=== PATIENT | male | born 1945 | race Caucasian/White ===

== ENCOUNTER 2019-09-23 07:27 | Emergency (ER) | payer OTHER ==
[2019-09-23 11:00] LABS: Urine Bacteria <20 /HPF (NONE SEEN); Urine Culture Reflex Order NOT NEEDED; Urine RBC <5 /HPF (NONE SEEN)
[2019-09-23 13:24] VITALS: BP 155/67; TEMP 97.9; O2SAT 97
--- NOTE | 2019-09-28 14:11 | EDPHYS ---
Physician Documentation [facility] Name: Ric Rivas Age: 73 yrs Sex: Male : 1945 Arrival Date: 09/23/2019 Time: 07:34 Bed 13 Private MD: ED Physician Ronak Collazo HPI: 09/22 08:02 This 73 yrs old Male presents to ER via Ambulatory with complaints of Urinary Problem. jmm 08:02 The patient presents with urinary symptoms, retention. Onset: The symptoms/episode jmm began/occurred this morning. Modifying factors: The symptoms are alleviated by nothing, the symptoms are aggravated by nothing. This is a 73 year old male with a history of enlarged prostate that presents to the ED with complaints of dysuria beginning yesterday and is now unable to urinate. Patient has had similar episodes in the past. Denies fever or vomiting. . Historical: - Allergies: 07:41 No Known Allergies; hb - Home Meds: 07:41 Bupropion Oral [Active]; hb - PMHx: 07:41 Urinary Retention; Enlarged Prostate; PTSD; hb - PSHx: 07:41 Carpal Tunnel Repair; hb - Immunization history:: Adult Immunizations up to date. - Social history:: Smoking status: Patient denies any tobacco usage or history of. ROS: 08:02 Constitutional: Negative for fever, chills, and weight loss, Cardiovascular: Negative jmm for chest pain, palpitations, and edema, Respiratory: Negative for shortness of breath, cough, wheezing, and pleuritic chest pain. 08:02 : Positive for urinary symptoms. 08:02 All other systems are negative. Exam: 08:02 Constitutional: This is a well developed, well nourished patient who is awake, alert, jmm and in no acute distress. Head/Face: atraumatic. Eyes: EOMI, no conjunctival erythema appreciated ENT: Moist Mucus Membranes Neck: Trachea midline, Supple Chest/axilla: Normal chest wall appearance and motion. Cardiovascular: Regular rate and rhythm. No edema appreciated Respiratory: Normal respirations, no respiratory distress appreciated Abdomen/GI: Non distended, soft Back: Normal ROM Skin: General appearance color normal MS/ Extremity: Moves all extremities, no obvious deformities appreciated, no edema noted to the lower extremities Neuro: Awake and alert, normal gait Psych: Behavior is normal, Mood is normal, Patient is cooperative and pleasant Vital Signs: 07:38 BP 155 / 67; Pulse 49; Resp 16; Temp 97.9; Pulse Ox 97% on R/A; Weight 99.79 kg; Height hb 5 ft. 11 in. (180.34 cm); Pain 8/10; 07:38 Body Mass Index 30.68 (99.79 kg, 180.34 cm) hb MDM: 07:54 Patient medically screened. [facility] 08:45 Data reviewed: vital signs, nurses notes. Counseling: I had a detailed discussion with [facility] the patient and/or guardian regarding: the historical points, exam findings, and any diagnostic results supporting the discharge/admit diagnosis, the need for outpatient follow up, to return to the emergency department if symptoms worsen or persist or if there are any questions or concerns that arise at home. ED course: approx 900 ml of urinary output. Patient's symptoms relieved. Patient is advised to follow up with urology and otherwise given strict return precautions. patient understood and agrees with the plan of care. . 09/22 07:54 Order name: Umanzor; Complete Time: 08:09 [facility] 09/22 07:54 Order name: Urine Dipstick-Ancillary (obtain specimen); Complete Time: 08:20 [facility] Administered Medications: No medications were administered Disposition: 09:25 Co-signature as Attending Physician, Ronak Collazo MD I agree with the assessment and kdr plan of care. Disposition: 09/23/19 08:46 Discharged to Home. Impression: Urinary Retention. - Condition is Stable. - Discharge Instructions: Acute Urinary Retention, Male. - Medication Reconciliation Form, Thank You Letter, Antibiotic Education, Prescription Opioid Use form. Signatures: Ronak Collazo MD MD [facility] Link Condon PA PA [facility] Sharon Foss, RN RN Gadiel Garcia RN RN jl7 Corrections: (The following items were deleted from the chart) 09:06 08:46 09/23/2019 08:46 Discharged to Home. Impression: Urinary Retention. Condition is jl7 Stable. Forms are Medication Reconciliation Form, Thank You Letter, Antibiotic Education, Prescription Opioid Use. Follow up: Private Physician; When: 2 - 3 days; Reason: Recheck today's complaints, Continuance of care, Re-evaluation by your physician. [facility]
--- NOTE | 2019-09-28 14:11 | ER ---
Nurse's Notes [facility] Name: Ric Rivas Age: 73 yrs Sex: Male : 1945 Arrival Date: 09/23/2019 Time: 07:34 Bed 13 Private MD: Diagnosis: Urinary Retention Presentation: 09/22 07:38 Chief complaint: Difficulty urinating last night, c/o suprapubic pain 8/10. Hx of hb urinary retention. Coronavirus screen: Proceed with normal triage. Ebola Screen: No symptoms or risks identified at this time. Initial Sepsis Screen: Does the patient meet any 2 criteria? No. Patient's initial sepsis screen is negative. Does the patient have a suspected source of infection? No. Patient's initial sepsis screen is negative. Risk Assessment: Do you want to hurt yourself or someone else? Patient reports no desire to harm self or others. Onset of symptoms was September 23, 2019. 07:38 Method Of Arrival: Ambulatory hb 07:38 Acuity: BOBBY 3 hb Historical: - Allergies: 07:41 No Known Allergies; hb - Home Meds: 07:41 Bupropion Oral [Active]; hb - PMHx: 07:41 Urinary Retention; Enlarged Prostate; PTSD; hb - PSHx: 07:41 Carpal Tunnel Repair; hb - Immunization history:: Adult Immunizations up to date. - Social history:: Smoking status: Patient denies any tobacco usage or history of. Screenin:09 Abuse screen: Denies threats or abuse. Denies injuries from another. Nutritional jl7 screening: No deficits noted. Tuberculosis screening: No symptoms or risk factors identified. Fall Risk None identified. Assessment: 08:00 General: Appears in no apparent distress. uncomfortable, Behavior is calm, cooperative, jl7 appropriate for age. Pain: Complains of pain in suprapubic area Pain currently is 8 out of 10 on a pain scale. Neuro: Level of Consciousness is awake, alert, obeys commands, Oriented to person, place, time, situation. Cardiovascular: Patient's skin is warm and dry. Respiratory: Airway is patent Respiratory effort is even, unlabored, Respiratory pattern is regular, symmetrical. : Reports inability to void. Derm: Skin is pink, warm \T\ dry. 09:00 Reassessment: Patient appears in no apparent distress at this time. Patient is alert, jl7 oriented x 3, equal unlabored respirations, skin warm/dry/pink. Patient states feeling better. Patient states symptoms have improved. Vital Signs: 07:38 BP 155 / 67; Pulse 49; Resp 16; Temp 97.9; Pulse Ox 97% on R/A; Weight 99.79 kg; Height hb 5 ft. 11 in. (180.34 cm); Pain 8/10; 07:38 Body Mass Index 30.68 (99.79 kg, 180.34 cm) hb ED Course: 07:34 Patient arrived in ED. mr 07:40 Triage completed. hb 07:41 Arm band placed on. 07:46 Gadiel Garcia, RN is Primary Nurse. 7 07:46 Link Condon PA is PHCP. [facility] 07:46 Ronak Collazo MD is Attending Physician. [facility] 08:09 Patient has correct armband on for positive identification. Bed in low position. Call jl7 light in reach. Side rails up X2. Warm blanket given. 08:09 Coud inserted, using sterile technique, 16 Fr. Returned clear yellow urine. To gravity jl7 drainage. Urine specimen collected. Patient tolerated well. 08:55 Coud removed intact, balloon deflated. jl7 09:00 No provider procedures requiring assistance completed. Patient did not have IV access jl7 during this emergency room visit. Administered Medications: No medications were administered Outcome: 08:46 Discharge ordered by . [facility] 09:00 Discharged to home ambulatory. jl7 09:00 Condition: stable 09:00 Discharge instructions given to patient, Instructed on discharge instructions, follow up and referral plans. Demonstrated understanding of instructions, follow-up care. 09:06 Patient left the ED. jl7 Signatures: Link Condon PA PA [facility] ZimmermanBelia FossSharon RN STACY Gadiel Garcia, STACY KUMAR jl7 Corrections: (The following items were deleted from the chart) 09:06 08:09 Coud inserted, using sterile technique, 16 Fr. Returned clear yellow urine. To jl7 gravity drainage. Urine specimen collected. jl7
== END 2019-09-23 09:06 | disposition home or self-care (01) ==
LOC: ER 07:27
DX: R33.9 Retention of urine, unspecified (principal); N40.0 Benign prostatic hyperplasia without lower urinary tract symptoms
CPT/HCPCS: 81015; 99284

== ENCOUNTER 2020-02-05 11:03 | Emergency (ER) | payer OTHER ==
--- OUTSIDE RECORDS SUMMARY | 2020-02-05 11:05 | XMS REPORT | Summary of Care ---
:1945 Author Organization [facility] - Health Address [address] [place] [address] Care Team Providers Name Role Phone [place], [facility] Quoc Christensen [facility] Primary Care Provider + Encounter Details Date Type Department Care Team Description 02/02/2020 Orders Only [facility] Doctor Unassigned, No [address] [facility] [place] [address] [address] [place] [address] Allergies No Known Allergiesdocumented as of this encounter (statuses as of 02/02/2020) Medications Medication Sig Dispensed Refills Start Date End Date Status tamsulosin 0.4 mg 24 Take 1 capsule by 30 capsule 1 12/24/2016 Active hr capsule mouth at bedtime. tamsulosin 0.4 mg 24 Take 1 capsule by 14 capsule 0 10/15/2017 Active hr capsule mouth at bedtime. cefdinir 300 mg Take 1 capsule by 7 capsule 0 03/11/2019 Active capsuleIndications: mouth every 24 Urinary tract (twenty-four) infection with hours. hematuria, site unspecified documented as of this encounter (statuses as of 02/02/2020) Active Problems No known active problemsdocumented as of this encounter (statuses as of 02/02/2020) Social History Tobacco Use Types Packs/Day Years Used Date Never Assessed Sex Assigned at Date Recorded Not on file documented as of this encounter Last Filed Vital Signs Not on filedocumented in this encounter Plan of Treatment Health Maintenance Due Date Last Done Comments Depression Screening 1957 DTaP,Tdap,and Td Vaccines (1 - Tdap) 10/19/1962 Zoster Recombinant Vaccine (SHINGRIX) (1 of 2) 10/19/1993 Medicare Wellness Visit 10/19/2008 PNEUMOCOCCAL VACCINES 65+ (1 of 1 - PPSV23) 10/19/2008 INFLUENZA VACCINE (#1) 2019 documented as of this encounter Procedures Procedure Name Priority Date/Time Associated Diagnosis Comme nts CONSENT/REFUSAL FOR Routine 02/02/2020 6:29 AM CDT DIAGNOSIS AND TREATMENT documented in this encounter Results Not on filedocumented in this encounter Insurance Payer Benefit Plan / Subscriber ID Effective Phone Address T ype Group Dates MEDICARE MEDICARE PART A [id number] 2008-Pre [phone] Medicare sent [phone] [id number] [place] [phone] [employer] [id number] 2005-Pr HMO/PPO /PO ADMINISTRATION ADMINISTRATION esent S [facility] [id number] 2005-Pr HMO/PPO /PO ADMINISTRATION esent S documented as of this encounter
--- OUTSIDE RECORDS SUMMARY | 2020-02-05 11:05 | XMS REPORT | Summary of Care ---
:1945 Author Organization [facility] Address [address] [place] [address] Care Team Providers Name Role Phone [place], [facility] Provider + Reason for Visit Reason Comments Constipation URINARY RETENTION Auth/Cert Status Reason Specialty Diagnoses / Referred By Referred To Procedures Contact Contact Emergency Medicine Diagnoses CONSTIPATION [facility] [address] [place] [address] Fax: Encounter Details Date Type Department Care Team Description 02/02/2020 Emergency [facility]-Emergency Chun Perry DO Urinary retention Department [address] [place] [address]. (Primary Dx) [address] [facility] [address] [place] [address] [place] [address] [phone] Allergies No Known Allergiesdocumented as of this [...] Assigned at Date Recorded Not on file COVID-19 Exposure Response Date Recorded In the last month, have you been in contact with No / Unsure 02/02/2020 6:42 AM CDT someone who was confirmed or suspected to have Coronavirus / COVID-19? documented as of this encounter Last Filed Vital Signs Vital Sign Reading Time Taken Comments Blood Pressure 139/66 02/02/2020 8:00 AM CDT Pulse 81 02/02/2020 8:00 AM CDT Temperature 36.7 C (98 F) 02/02/2020 8:00 AM CDT Respiratory Rate 18 02/02/2020 8:00 AM CDT Oxygen Saturation 99% 02/02/2020 8:00 AM CDT Inhaled Oxygen Concentration - - Weight 99.8 kg (220 lb) 02/02/2020 6:44 AM CDT Height 182.9 cm (6') 02/02/2020 6:44 AM CDT Body Mass Index 29.84 02/02/2020 6:44 AM CDT documented in this encounter Discharge Instructions Chun Charlton DO - 02/02/2020 DIAGNOSIS Diagnoses that have been ruled out: None Diagnoses that are still under consideration: None Final diagnoses: Urinary retention NO LIFE-THREATENING FINDINGS ON TODAY'S EXAM. PROCEDURES IN THE ER TODAY: Orders Placed This Encounter Procedures URINALYSIS MEDICATIONS ADMINISTERED IN THE ER TODAY AND DISCHARGE MEDICATIONS: No orders of the defined types were placed in this encounter. FOLLOW-UP RECOMMENDATIONS: RECOMMEND FOLLOW-UP WITH A PRIMARY CARE PROVIDER OR SPECIALIST IN 2-5 DAYS, ESPECIALLY IF NO IMPROVEMENT IN SYMPTOMS. MAY FOLLOW-UP WITH A PROVIDER OF YOUR CHOICE, SUCH : 1. A PHYSICIAN OF YOUR CHOICE 2. [facility], . LOCATIONS IN [facility] 3. [facility], [address] [place] [address]; [phone] OR, IF YOU WISH TO FOLLOW-UP WITHIN THE [facility], MAY TRY THESE OPTIONS (CLINIC APPOINTMENTS AVAILABLE ON [id number] BASIS): 1. SCHEDULE AN APPOINTMENT ONLINE AT WWW[facility] 2. OR CALL THE [facility] ACCESS CENTER AT OR 3. OR CALL YOUR [facility] PHYSICIAN'S OFFICE DIRECTLY IF YOU ARE ALREADY AN ESTABLISHED [facility] PATIENT. RETURN TO ER FOR WORSENING OF SYMPTOMS. AttachmentsThe following attachments cannot be sent through Care Everywhere. Catheter Care, Reece (Japanese)Urinary Retention, Male (Japanese)documented in this encounter ED Notes Chris Rousseau RN - 02/02/2020 6:42 AM CDTPatient complaining of constipation and urinary incontinence. Also reports this happened about 1 year ago. History of enlarged prostate and has had to have a reece catheter placed. 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 Hx of same in past. Triage bladder scan ~ 1L. Reece placed. No fever or pain status post reece placement. Has an appointment withurology next week. Past Medical History / Immunizations Past Medical History: Diagnosis Date Enlarged prostate PTSD (post-traumatic stress disorder) Tetanus received in last 5 years: Unknown Childhood immunizations: Up-to-date Past Surgical History Past Surgical History: Procedure Laterality Date ENDOSCOPIC CARPAL TUNNEL RELEASE Left Allergies No Known Allergies Social History Substance & Sexual Activity No substance use or sexual activity history on file. Review of Systems Review of Systems Constitutional: Negative for activity change, appetite change, chills, diaphoresis and fever. HENT: Negative for sore throat and voice change. Eyes: Negative for pain and visual disturbance. Respiratory: Negative for cough, chest tightness and shortness of breath. Cardiovascular: Negative for chest pain and leg swelling. Gastrointestinal: Positive for constipation. Negative for abdominal pain, blood in stool and diarrhea. Genitourinary: Positive for difficulty urinating. Negative for dysuria, urgency and flank pain. Musculoskeletal: Negative for back pain. Skin: Negative for color change, rash and wound. Neurological: Negative for dizziness and headaches. Hematological: Does not bruise/bleed easily. Physical Exam BP (!) 157/107 | Pulse 80 | Temp 36.6 C (97.9 F) | Resp 18 | Ht 1.829 m (6') | Wt 99.8 kg (220 lb) | SpO2 99% | BMI 29.84 kg/m Physical Exam Vitals signs and nursing note reviewed. Constitutional: Appearance: He is well-developed. HENT: Head: Normocephalic and atraumatic. Eyes: General: No scleral icterus. Conjunctiva/sclera: Conjunctivae normal. Pupils: Pupils are equal, round, and reactive to light. Neck: Musculoskeletal: Normal range of motion and neck supple. Vascular: No JVD. Cardiovascular: Rate and Rhythm: Normal rate and regular rhythm. Heart sounds: Normal heart sounds. Pulmonary: Effort: Pulmonary effort is normal. Breath sounds: Normal breath sounds. No stridor. Abdominal: General: Bowel sounds are normal. Palpations: Abdomen is soft. Genitourinary: Comments: Reece to leg bag. 800mL UOP. Musculoskeletal: Normal range of motion. Skin: General: Skin is warm and dry. Neurological: Mental Status: He is alert and oriented to person, place, and time. Psychiatric: Behavior: Behavior normal. Thought Content: Thought content normal. Labs Recent Results (from the past 24 hour(s)) URINALYSIS Collection Time: 02/02/20 7:32 AM Result Value Ref Range APPEARANCE Clear Clear COLOR Yellow Yellow PH 6.0 4.8 - 8.0 SP GRAVITY 1.008 1.003 - 1.030 GLU U QUAL Normal Normal BLOOD 1+ (A) Negative KETONES Negative Negative PROTEIN Negative Negative UROBILIN Normal Normal BILIRUBIN Negative Negative NITRITE Negative Negative LEUK GIULIANA Negative Negative RBC/HPF 1 0 - 3 HPF WBC/HPF 6 (H) 0 - 5 HPF BACTERIA Few (A) Negative MUCOUS Slight (A) Negative LPF SQ EPITH <1 HPF Imaging No results found for this visit on 02/02/20. Orders and Treatments Orders Placed This Encounter Procedures URINALYSIS No orders of the defined types were placed in this encounter. Procedures See ED Procedure Note Notes & MDM Patient was evaluated for an emergency medical condition related to Constipation and URINARY RETENTION . Differential diagnoses considered by presenting complaints but not limited to: Urinary retention, UTI, TIANA, and others. Labs:were ordered, and resulted, any relevant abnormalities were considered. Imaging:Was not ordered IV fluids: not indicated Procedures:were not performed. Assessment: Ric Rivas is a 74 year old male with uncomplicated urinary retention. Reece placed. Follow-up with urology. Return precautions given if symptoms worsen as documented in the discharge instructions. History, physical exam findings, results of visit, differential diagnosis, medication regimens and plan of future care have been considered. Additional MDM may be found in the ED course. Differential diagnosis considered and final disposition made based on information gathered during evaluation and may not be completely ruled out or specifically listed. Vital signs were rechecked before final disposition and determined to be stable. Diagnosis ICD-10-CM ICD-9-CM 1. Urinary retention R33.9 788.20 Disposition & Follow Up ED Disposition ED Disposition Condition Comment Disch - Home Stable Patient's Medications START taking these medications No medications on file CONTINUE taking these medications which have NOT CHANGED CEFDINIR 300 MG CAPSULE Take 1 capsule by mouth every 24 (twenty-four) hours. TAMSULOSIN 0.4 MG 24 HR CAPSULE Take 1 capsule by mouth at bedtime. TAMSULOSIN 0.4 MG 24 HR CAPSULE Take 1 capsule by mouth at bedtime. START taking Modified Medications as Prescribed No medications on file STOP taking these medications No medications on file Contact information for follow-up Center, [place] Medical Relationship: PCP - General [address] [place] [address]. [facility] [address] Instructions: For follow up of the presenting symptoms. [facility]-Emergency Department Specialty: Emergency Medicine [address] [facility] [address] Instructions: If symptoms worsen as documented in the discharge Chun Perry DO 02/02/2020 7:05 AM ACTIVE COVID-19 PANDEMIC. documented in this encounter Miscellaneous Notes ED Nurse Note - Anisha Winston RN - 02/02/2020 8:10 AM CDTPatient discharged home and left ER vitally stable and ambulatory and states that he feels better. No valuables left in ED. documented in this encounter Plan of Treatment Health Maintenance Due Date Last Done Comments Depression Screening 1955 DTaP,Tdap,and Td Vaccines (1 - Tdap) 10/19/1962 Zoster Recombinant Vaccine (SHINGRIX) (1 of 2) 10/19/1993 Medicare Wellness Visit 10/19/2008 PNEUMOCOCCAL VACCINES 65+ (1 of 1 - PPSV23) 10/19/2008 INFLUENZA VACCINE (#1) 2019 documented as of this encounter Procedures Procedure Name Priority Date/Time Associated Diagnosis Comme nts URINALYSIS STAT 02/02/2020 7:32 AM Urinary retention Res ults for this CDT procedure are i n the results section . documented in this encounter Results URINALYSIS (02/02/2020 7:32 AM CDT) Pathologist Sig nature APPEARANCE Clear Clear [facility] COLOR Yellow Yellow [facility] PH 6.0 4.8 - 8.0 [facility] SP GRAVITY 1.008 1.003 - 1.030 [facility] GLU U QUAL Normal Normal [facility] BLOOD 1+ (A) Negative [facility] KETONES Negative Negative [facility] PROTEIN Negative Negative [facility] UROBILIN Normal Normal [facility] BILIRUBIN Negative Negative [facility] NITRITE Negative Negative [facility] LEUK GIULIANA Negative Negative [facility] RBC/HPF 1 0 - 3 HPF [facility] WBC/HPF 6 (H) 0 - 5 HPF [facility] BACTERIA Few (A) Negative [facility] MUCOUS Slight (A) Negative LPF [facility] SQ EPITH <1 HPF [facility] Specimen Urine - URINE, CATHETERIZED Performing Organization Address City/State/Zipcode Phone Number [facility] CLIA: [id number] [place] [address] documented in this encounter Visit Diagnoses Diagnosis Urinary retention - Primary Retention of urine, unspecified documented in this encounter Insurance Payer Benefit Plan / Subscriber ID Effective Phone Address T ype Group Dates MEDICARE MEDICARE PART A [id number] 2008-Pre [phone] Medicare qyls [phone] [id number] [place] D[place] [phone] [employer] [id number] 2005-Pr HMO/PPO /PO ADMINISTRATION ADMINISTRATION [employer] documented as of this encounter"
--- OUTSIDE RECORDS SUMMARY | 2020-02-05 11:05 | XMS REPORT | Continuity of Care Document ---
:1945 Author Organization [facility] t Address [address] [place] [address] Care Team Providers Name Role Phone Perry DO Attending Clinician Doctor Unassigned, Name Attending Clinician Unavailable Problems This patient has no known problems. Allergies, Adverse Reactions, Alerts This patient has no known allergies or adverse reactions. Medications This patient has no known medications. Procedures This patient has no known procedures. Encounters Start End Encounter Admission Attending Care Care Encounter Source Date/Time Date/Time Type Type Clinicians Facility Department ID 2020-02-02 2020-02-02 Emergency SAMIA Perry [id number] 06:41:00 08:15:00 Chun Dinh [id number] [place] [id number] [place] [id number] 2020-02-02 2020-02-02 Orders Doctor RIVAS [id number] 00:00:00 00:00:00 Only UnassSANDRINE ortega [id number] [place] [facility] [id number] 2019-08-11 2019-08-11 Emergency Singer [facility] [id number] 11:46:26 12:23:00 Chun Dinh [id number] [place] [id number] [place] [id number] 2019-08-11 2019-08-11 Orders Doctor RIVAS [id number] 00:00:00 00:00:00 Only UnassignedKRISTINAY [id number] [place] [facility] [id number] 2019-01-09 2019-01-09 Emergency Singer [facility] [id number] 06:54:45 09:43:00 Chun [place] [id number] [place] [id number] [place] [id number] 2019-01-09 2019-01-09 Orders Doctor EVELYN [id number] 00:00:00 00:00:00 Only Unassigned SANDRINE [id number] [place] [id number] Results This patient has no known results.
[2020-02-05 12:04] LABS: Urine Blood TRACE (NEG); Urine Glucose NEGATIVE (NEG); Urine Protein NEGATIVE (NEG); Urine Specific Gravity 1.015 (1.005-1.030)
[2020-02-05] MEDS ORDERED: LIDOCAINE VISCOUS 2% SOLN 15 ML UDC ONE (12:20)
[2020-02-05] MEDS ORDERED: CEFTRIAXONE/SWI 1gm 1 GM/10 ML SYR ONE (12:20)
[2020-02-05] MEDS ORDERED: NA CHLORIDE 0.9% 500 ML ONE (12:20)
[2020-02-05 12:54] LABS: RBC Red Blood Cell Count 3.91 M/uL (4.33-5.43)
[2020-02-05 12:55] LABS: Absolute Lymphocytes (CBC) 1.2 K/uL (0.7-4.9); Basophils % 0.8 % (0-1.3); Hematocrit 41.4 % (39.6-49.0); Lymphocytes % 12.8 % (15.3-44.8); MPV 8.8 fL (7.6-11.3); RBC Red Blood Cell Count 4.63 M/uL (4.33-5.43)
[2020-02-05 12:57] LABS: Lymphocytes % 3.1 % (15.3-44.8)
[2020-02-05 12:58] LABS: Absolute Lymphocytes (CBC) 0.4 K/uL (0.7-4.9); Basophils % 0.2 % (0-1.3)
[2020-02-05 13:11] LABS: Potassium 3.9 mmol/L (3.5-5.1)
--- NOTE | 2020-02-05 13:24 | EDPHYS ---
Physician Documentation [facility] Name: Ric Rivas Age: 74 yrs Sex: Male : 1945 Arrival Date: 02/05/2020 Time: 11:07 Bed 20 Private MD: ED Physician Bladimir Green HPI: 02/04 11:45 This 74 yrs old Male presents to ER via Ambulatory with complaints of Urinary michael Problem. 11:45 The patient presents with abdominal pain in the upper abdomen. Onset: The michael symptoms/episode began/occurred 2 day(s) ago. The patient presents with urinary symptoms, dribbling of urine, hesitancy to initiate urine stream. Onset: The symptoms/episode began/occurred 2 day(s) ago. Modifying factors: The symptoms are alleviated by remaining still, the symptoms are aggravated by nothing. Associated signs and symptoms: The patient has no apparent associated signs or symptoms. The symptoms do not radiate. Severity of pain: At its worst the pain was mild moderate in the emergency department the pain is unchanged. Historical: - Allergies: 11:08 No Known Allergies; ll1 - PMHx: 11:08 urinary retention; PTSD; enlarged prostate; ll1 - PSHx: 11:08 Carpal Tunnel Repair; ll1 - Immunization history:: Flu vaccine is up to date. - Social history:: Smoking status: Patient denies any tobacco usage or history of. - Family history:: not pertinent. ROS: 11:45 Constitutional: Negative for fever, chills, and weight loss, Eyes: Negative for injury, michael pain, redness, and discharge, ENT: Negative for injury, pain, and discharge, Neck: Negative for injury, pain, and swelling, Cardiovascular: Negative for chest pain, palpitations, and edema, Respiratory: Negative for shortness of breath, cough, wheezing, and pleuritic chest pain, Back: Negative for injury and pain, MS/Extremity: Negative for injury and deformity, Skin: Negative for injury, rash, and discoloration, Neuro: Negative for headache, weakness, numbness, tingling, and seizure, Psych: Negative for depression, anxiety, suicide ideation, homicidal ideation, and hallucinations, Allergy/Immunology: Negative for hives, rash, and allergies, Endocrine: Negative for neck swelling, polydipsia, polyuria, polyphagia, and marked weight changes, Hematologic/Lymphatic: Negative for swollen nodes, abnormal bleeding, and unusual bruising. 11:45 Abdomen/GI: Positive for abdominal pain, abdominal cramps, abdominal distension, of the suprapubic area, right lower quadrant and left lower quadrant. Exam: 11:45 Constitutional: This is a well developed, well nourished patient who is awake, alert, michael and in no acute distress. Head/Face: Normocephalic, atraumatic. Eyes: Pupils equal round and reactive to light, extra-ocular motions intact. Lids and lashes normal. Conjunctiva and sclera are non-icteric and not injected. Cornea within normal limits. Periorbital areas with no swelling, redness, or edema. ENT: Nares patent. No nasal discharge, no septal abnormalities noted. Tympanic membranes are normal and external auditory canals are clear. Oropharynx with no redness, swelling, or masses, exudates, or evidence of obstruction, uvula midline. Mucous membranes moist. Neck: Trachea midline, no thyromegaly or masses palpated, and no cervical lymphadenopathy. Supple, full range of motion without nuchal rigidity, or vertebral point tenderness. No Meningismus. Chest/axilla: Normal chest wall appearance and motion. Nontender with no deformity. No lesions are appreciated. Cardiovascular: Regular rate and rhythm with a normal S1 and S2. No gallops, murmurs, or rubs. Normal PMI, no JVD. No pulse deficits. Respiratory: Lungs have equal breath sounds bilaterally, clear to auscultation and percussion. No rales, rhonchi or wheezes noted. No increased work of breathing, no retractions or nasal flaring. Back: No spinal tenderness. No costovertebral tenderness. Full range of motion. Skin: Warm, dry with normal turgor. Normal color with no rashes, no lesions, and no evidence of cellulitis. MS/ Extremity: Pulses equal, no cyanosis. Neurovascular intact. Full, normal range of motion. Neuro: Awake and alert, GCS 15, oriented to person, place, time, and situation. Cranial nerves II-XII grossly intact. Motor strength 5/5 in all extremities. Sensory grossly intact. Cerebellar exam normal. Normal gait. Psych: Awake, alert, with orientation to person, place and time. Behavior, mood, and affect are within normal limits. 11:45 Abdomen/GI: Inspection: distension, that is mild, Bowel sounds: normal, Palpation: mild abdominal tenderness, in the right lower quadrant and left lower quadrant, Liver: no appreciated palpable abnormalities, Hernia: not appreciated. 12:32 ECG was reviewed by the Attending Physician. [facility] Vital Signs: 11:08 BP 136 / 63; Pulse 97; Resp 18; Temp 98.3; Pulse Ox 97% ; Weight 99.79 kg; Height 6 ft. ll1 0 in. (182.88 cm); Pain 0/10; 13:15 BP 140 / 70; Pulse 73; Resp 18; Pulse Ox 98% on R/A; ph 11:08 Body Mass Index 29.84 (99.79 kg, 182.88 cm) ll1 MDM: 11:16 Patient medically screened. [facility] 11:47 Differential diagnosis: non-specific abd pain. Data reviewed: vital signs, nurses [facility] notes, lab test result(s), urinalysis. Data interpreted: quality assurance monitor final: not applicable for this patient encounter. rate is 97 beats/min, rhythm is regular. Counseling: I had a detailed discussion with the patient and/or guardian regarding: the historical points, exam findings, and any diagnostic results supporting the discharge/admit diagnosis, lab results. 02/04 11:43 Order name: Urine Culture [facility] 02/04 11:48 Order name: Urine Dipstick--Ancillary (enter results); Complete Time: 12:26 eb 02/04 11:52 Order name: CBC with Diff; Complete Time: 13:09 [facility] 02/04 12:28 Order name: CBC with Diff; Complete Time: 13:09 ph 02/04 12:11 Order name: Abdomen 1 View (KUB) XRAY [facility] 02/04 12:28 Order name: Basic Metabolic Panel; Complete Time: 13:22 ph 02/04 11:43 Order name: Urine Dipstick-Ancillary (obtain specimen); Complete Time: 11:48 [facility] 02/04 11:43 Order name: Umanzor; Complete Time: 13:15 [facility] 02/04 11:43 Order name: Umanzor Leg Bag; Complete Time: 13:48 [facility] EC:32 Rate is 87 beats/min. Rhythm is regular. QRS [place] is Normal. [place] interval is normal. QRS michael interval is normal. QT interval is normal. No Q waves. T waves are Normal. No ST changes noted. Clinical impression: Normal ECG and No evidence of ischemia. Interpreted by me. Reviewed by me. Administered Medications: 13:00 Drug: Viscous Lidocaine Liquid (4 %) 5 ml Route: Mucous Membrane; ph 13:30 Follow up: Response: No adverse reaction jd3 13:14 Drug: NS 0.9% 500 ml Route: IV; Rate: bolus; Site: left antecubital; ph 13:48 Follow up: Response: No adverse reaction; IV Status: Completed infusion; IV Intake: jd3 500ml 13:15 Drug: Rocephin 1 grams Route: IV; Rate: per protocol; Site: right antecubital; ph 13:30 Follow up: Response: No adverse reaction; IV Status: Completed infusion jd3 13:34 Not Given (Physician Discretion): Flomax 0.4 mg PO once jd3 13:34 Drug: Cipro 500 mg Route: PO; jd3 13:48 Follow up: Response: Medication administered at discharge. jd3 Disposition: 02/05/20 13:24 Discharged to Home. Impression: Retention of urine, Urinary tract infection, site not specified. - Condition is Stable. - Discharge Instructions: Benign Prostatic Hypertrophy, Umanzor Catheter Care, Adult, Urinary Tract Infection, Adult, Urinary Tract Infection, Adult, Rufn-cr-Pghm, Acute Urinary Retention, Male, Twdl-rz-Yyzo, Umanzor Catheter Care, Adult, Lzho-ub-Zdzr. - Prescriptions for Flomax 0.4 mg Oral Capsule, Sust. Release 24 hr - take 1 capsule by ORAL route once daily 1/2 hour following the same meal each day; 30 capsule. Cipro 500 mg Oral Tablet - take 1 tablet by ORAL route every 12 hours for 7 days; 14 tablet. - Medication Reconciliation Form, Thank You Letter, Antibiotic Education, Prescription Opioid Use form. - Follow up: Private Physician; When: 2 - 3 days; Reason: Recheck today's complaints, Continuance of care, Re-evaluation by your physician. Follow up: Deo Reeves; When: 2 - 3 days; Reason: Recheck today's complaints, Continuance of care, Re-evaluation by your physician. - Problem is new. - Symptoms have improved. Signatures: Dispatcher [employer] EDBladimir Mirza MD MD cha Hall, Patricia RN RN César Meredith RN RN jd3 Lexi Paredes RN RN ll1 Corrections: (The following items were deleted from the chart) 12:13 11:55 [place] Protocol+CT.RAD.BRZ ordered. EDCT EDCT 12:27 11:52 COMPREHENSIVE METABOLIC PANEL+C.LAB.BRZ ordered. [facility] EDCT 12:45 12:17 CBC Smear Scan ordered. [facility] EDCT 13:50 13:24 02/05/2020 13:24 Discharged to Home. Impression: Retention of urine; Urinary jd3 tract infection, site not specified. Condition is Stable. Discharge Instructions: Umanzor Catheter Care, Adult, Urinary Tract Infection, Adult, Urinary Tract Infection, Adult, Nblb-ab-Ahyi, Acute Urinary Retention, Male, Mhws-if-Jorr, Umanzor Catheter Care, Adult, Wwsp-up-Xyyz. Prescriptions for Flomax 0.4 mg Oral Capsule, Sust. Release 24 hr - take 1 capsule by ORAL route once daily 1/2 hour following the same meal each day; 30 capsule, Cipro 500 mg Oral Tablet - take 1 tablet by ORAL route every 12 hours for 7 days; 14 tablet. and Forms are Medication Reconciliation Form, Thank You Letter, Antibiotic Education, Prescription Opioid Use. Follow up: Private Physician; When: 2 - 3 days; Reason: Recheck today's complaints, Continuance of care, Re-evaluation by your physician. Follow up: Deo Reeves; When: 2 - 3 days; Reason: Recheck today's complaints, Continuance of care, Re-evaluation by your physician. Problem is new. Symptoms have improved. michael
--- NOTE | 2020-02-05 13:24 | ER ---
Nurse's Notes [facility] Name: Ric Rivas Age: 74 yrs Sex: Male : 1945 Arrival Date: 02/05/2020 Time: 11:07 Bed 20 Private MD: Diagnosis: Retention of urine;Urinary tract infection, site not specified Presentation: 02/04 11:08 Chief complaint:. Chief complaint: Patient states: Unable to urinate well since last ll1 night. No fever. Pelvic pain at times, none now. His constipation resolved this morning with castor oil. Coronavirus screen: Client denies travel out of the [place] in the last 14 days. At this time, the client does not indicate any symptoms associated with coronavirus-19. Ebola Screen: Patient denies travel to an Ebola-affected area in the 21 days before illness onset. Initial Sepsis Screen: Does the patient meet any 2 criteria?. Initial Sepsis Screen: Does the patient meet any 2 criteria? HR > 90 bpm. No. Patient's initial sepsis screen is negative. Does the patient have a suspected source of infection? Yes: Dysuria/Frequency/Urgency/UTI. Risk Assessment: Do you want to hurt yourself or someone else? Patient reports no desire to harm self or others. Onset of symptoms was February 04, 2020. 11:08 Method Of Arrival: Ambulatory ll1 11:08 Acuity: BOBBY 3 ll1 Historical: - Allergies: 11:08 No Known Allergies; ll1 - PMHx: 11:08 urinary retention; PTSD; enlarged prostate; ll1 - PSHx: 11:08 Carpal Tunnel Repair; ll1 - Immunization history:: Flu vaccine is up to date. - Social history:: Smoking status: Patient denies any tobacco usage or history of. - Family history:: not pertinent. Screenin:15 Abuse screen: Denies threats or abuse. Denies injuries from another. Nutritional ph screening: No deficits noted. Tuberculosis screening: No symptoms or risk factors identified. Fall Risk None identified. Assessment: 11:30 General: Appears in no apparent distress. comfortable, well groomed, Behavior is calm, ph cooperative, appropriate for age. Pain: Complains of pain in suprapubic area. Neuro: Level of Consciousness is awake, alert, obeys commands, Oriented to person, place, time, situation. Cardiovascular: Capillary refill < 3 seconds in bilateral fingers Patient's skin is warm and dry. Respiratory: Airway is patent Respiratory effort is even, unlabored. GI: Reports constipation, Patient currently denies diarrhea, nausea, vomiting. : Reports inability to void, pain in suprapubic area. Derm: Skin is intact, is healthy with good turgor, Skin is pink, warm \T\ dry. 13:21 Reassessment: Patient appears in no apparent distress at this time. Patient is alert, ph oriented x 3, equal unlabored respirations, skin warm/dry/pink. Patient is alert/active/playful, equal unlabored respirations, skin warm/dry/pink. 13:49 Reassessment: Patient appears in no apparent distress at this time. Patient and/or jd3 family updated on plan of care and expected duration. Pain level reassessed. Patient is alert, oriented x 3, equal unlabored respirations, skin warm/dry/pink. Umanzor leg bag placed to pt. Patient states feeling better. Vital Signs: 11:08 BP 136 / 63; Pulse 97; Resp 18; Temp 98.3; Pulse Ox 97% ; Weight 99.79 kg; Height 6 ft. ll1 0 in. (182.88 cm); Pain 0/10; 13:15 BP 140 / 70; Pulse 73; Resp 18; Pulse Ox 98% on R/A; ph 11:08 Body Mass Index 29.84 (99.79 kg, 182.88 cm) ll1 ED Course: 11:07 Patient arrived in ED. mr 11:08 Arm band placed on Patient placed in an exam room, on a stretcher. ll1 11:14 Triage completed. ll1 11:14 Malia Grullon, RN is Primary Nurse. ph 11:16 Bladimir Hamilton MD is Attending Physician. michael 11:16 Patient has correct armband on for positive identification. Bed in low position. Call ph light in reach. Pulse ox on. NIBP on. Door closed. Noise minimized. 12:04 Radiology exam delayed due to PT REFUSING CT AT THIS TIME. DR. HAMILTON NOTIFIED. sj 12:40 Inserted saline lock: 20 gauge in right antecubital area, using aseptic technique. ph Blood collected. Flushed 10 mL NS. 13:00 Umanzor cath inserted, using sterile technique, 16 Fr., by va, balloon inflated, other ph 700 mL urine returned returned osmar urine. 13:18 Abdomen 1 View (KUB) XRAY In Process Unspecified. EDMS 13:24 Deo Reeves MD is Referral Physician. [facility] 13:49 No provider procedures requiring assistance completed. IV discontinued, intact, jd3 bleeding controlled, No redness/swelling at site. Pressure dressing applied. Administered Medications: 13:00 Drug: Viscous Lidocaine Liquid (4 %) 5 ml Route: Mucous Membrane; ph 13:30 Follow up: Response: No adverse reaction jd3 13:14 Drug: NS 0.9% 500 ml Route: IV; Rate: bolus; Site: left antecubital; ph 13:48 Follow up: Response: No adverse reaction; IV Status: Completed infusion; IV Intake: jd3 500ml 13:15 Drug: Rocephin 1 grams Route: IV; Rate: per protocol; Site: right antecubital; ph 13:30 Follow up: Response: No adverse reaction; IV Status: Completed infusion jd3 13:34 Not Given (Physician Discretion): Flomax 0.4 mg PO once jd3 13:34 Drug: Cipro 500 mg Route: PO; jd3 13:48 Follow up: Response: Medication administered at discharge. jd3 Intake: 13:48 IV: 500ml; Total: 500ml. jd3 Outcome: 13:24 Discharge ordered by . [facility] 13:49 Discharged to home ambulatory, with family. jd3 13:49 Condition: stable 13:49 Discharge instructions given to patient, Instructed on discharge instructions, follow up and referral plans. medication usage, Demonstrated understanding of instructions, follow-up care, medications, Prescriptions given X 2. 13:50 Patient left the ED. jd3 Signatures: Dispatcher [employer] EDMA Bladimir Hamilton MD MD cha Rivera, Belia mr Clint, Malia Cervantes ph D, RN RNavies, Jonathon, RN RN jd3 Lewis, Lynsay, RN RN ll1
--- NOTE | 2020-02-05 13:30 | RAD REPORT ---
EXAM DESCRIPTION: RAD - Abdomen 1 View (KUB) - 02/05/2020 1:16 pm CLINICAL HISTORY: Abd pain;Constipation COMPARISON: No comparisons FINDINGS: Bowel gas pattern is nonspecific. There is no abnormal stool volume in the colon. No obstr uction, free air or pneumatosis. No suspicious calcifications. Lower lumbar degenerative changes are present. Patient has advanced degenerative change at the left h ip joint. IMPRESSION: Negative KUB examination. No abnormal stool volume in the colon.
[2020-02-05] MEDS ORDERED: CIPROFLOXACIN HCL 500 MG TAB ONE (13:40)
[2020-02-05] MEDS ORDERED: TAMSULOSIN 0.4 MG SR CAP ONE (13:40)
[2020-02-05 13:58] VITALS: TEMP 98.3
[2020-02-05 13:59] VITALS: BP 140/70; O2SAT 98
== END 2020-02-05 13:50 | disposition home or self-care (01) ==
LOC: ER 11:03
DX: N39.0 Urinary tract infection, site not specified (principal)
CPT/HCPCS: 96361; 85025 ×2; 87086; 80048; 36415; 81003; 74018; 51702; 96374; 99284; J0696; J7040; 87088

== ENCOUNTER 2020-02-05 15:50 | Emergency (ER) | payer OTHER ==
--- OUTSIDE RECORDS SUMMARY | 2020-02-05 15:52 | XMS REPORT | Summary of Care ---
:1945 Author Organization [facility] Address [address] [place] [address] Care Team Providers Name Role Phone [place], [facility] Christensen [facility] Primary Care Provider + Encounter Details Date Type Department Care Team Description 02/02/2020 Orders Only [facility] Doctor Unassigned, No [address] [facility] [place] [address] [address] [place] [address] Allergies No Known Allergiesdocumented as of this [...] ype Group Dates MEDICARE MEDICARE PART A [id number] 2008-Pre [phone] Medicare sent [id number] [place] DIA [id number] [employer] [id number] 2005-Pr HMO/PPO /PO ADMINISTRATION ADMINISTRATION esent S [facility] [id number] 2005-Pr HMO/PPO /PO ADMINISTRATION esent S documented as of this encounter
--- OUTSIDE RECORDS SUMMARY | 2020-02-05 15:52 | XMS REPORT | Continuity of Care Document ---
:1945 Author Organization [facility] t Address [address] [place] [address] Care Team Providers Name Role Phone Perry [...] Department ID 2020-02-02 2020-02-02 Emergency SAMIA Perry [id number] 06:41:00 08:15:00 Chun Dinh [id number] [place] [id number] [place] [id number] 2020-02-02 2020-02-02 Orders Doctor RIVAS [id number] 00:00:00 00:00:00 Only UnassSANDRINE ortega [id number] [place] [facility] [id number] [id number] 2019-08-11 2019-08-11 Emergency Singer [facility] [id number] 11:46:26 12:23:00 Chun Dinh 350.1.13.10 [place] [id number] [place] [id number] 2019-08-11 2019-08-11 Orders Doctor RIVAS [id number] 00:00:00 00:00:00 Only UnassignedKRISTINAY 350.1.13.10 [place] [facility] [id number] [id number] 2019-01-09 2019-01-09 Emergency Singer [facility] [id number] 06:54:45 09:43:00 [place]un [place] [id number] [place] [id number] [place] [id number] 2019-01-09 2019-01-09 Orders Doctor EVELYN [id number] 00:00:00 00:00:00 Only Unassigned SANDRINE 350.1.13.10 [place] [id number] Results This patient has no known results.
--- OUTSIDE RECORDS SUMMARY | 2020-02-05 15:53 | XMS REPORT | Summary of Care ---
:1945 Author Organization [facility] Address [address] [place] [id number] Care Team Providers Name Role Phone [place], [facility] Primary Care Provider + Reason for Visit Reason Comments Constipation URINARY RETENTION Auth/Cert Status Reason Specialty Diagnoses / Referred By Referred To Procedures Contact Contact Emergency Medicine Diagnoses CONSTIPATION [facility] Emergency Dept [address] [place] [address] Fax: Encounter Details Date Type Department Care Team Description 02/02/2020 Emergency ADC-Emergency Chun Perry DO Urinary retention Department [address] [place] [address]. (Primary Dx) [address] [facility] [address] [place] [address] [place] [address] [phone] Allergies No Known Allergiesdocumented as of this [...] 1. A PHYSICIAN OF YOUR CHOICE 2. [facility], . LOCATIONS IN [facility] 3. [facility], [address] [place] [address]; [phone] OR, IF YOU WISH TO FOLLOW-UP WITHIN THE [facility], MAY TRY THESE OPTIONS (CLINIC APPOINTMENTS AVAILABLE ON URTI-HU-HHHN BASIS): 1. SCHEDULE AN APPOINTMENT ONLINE AT WWW[facility] 2. OR CALL THE [facility] AT OR 3. OR CALL YOUR [facility] PHYSICIAN'S OFFICE DIRECTLY IF YOU ARE ALREADY AN ESTABLISHED [facility] PATIENT. RETURN TO ER FOR WORSENING OF SYMPTOMS. AttachmentsThe following attachments cannot be sent through Care Everywhere. Catheter Care, Reece (Turkmen)Urinary Retention, Male (Turkmen)documented in this encounter ED Notes Chris Rousseau RN - 02/02/2020 6:42 AM CDTPatient complaining of constipation and urinary incontinence. Also reports this happened about 1 year ago. History of enlarged prostate and has had to have a reece catheter placed. Chun Perry DO - 02/02/2020 6:31 AM CDT EMERGENCY DEPARTMENT ENCOUNTER [facility] Patient Name: Ric Rivas Date of : 1945 74 year old Exam Room:TX2/TX2 Primary Care Physician: [facility] Pre- Hospital Patient Escorted by: Self [9] Mode of Arrival: Personal means [1] EMS Treatment Prior to ED Arrival: [employer] treatment: None Chief Complaint Chief Complaint Patient [...] on file Contact information for follow-up Center, [facility] Deo Christensen Medical Relationship: PCP - General [address] [place] [address]. [facility] [id number] Instructions: For follow up of the presenting symptoms. ADC-Emergency Department Specialty: Emergency Medicine [address] [facility] [address] Instructions: If symptoms worsen as documented in [...] CDT) Pathologist Sig nature APPEARANCE Clear Clear [facility] COLOR Yellow Yellow [facility] PH 6.0 4.8 - 8.0 [facility] SP GRAVITY 1.008 1.003 - 1.030 [facility] GLU U QUAL Normal Normal [facility] BLOOD 1+ (A) Negative [facility] KETONES Negative Negative [facility] PROTEIN Negative Negative [facility] UROBILIN Normal Normal [facility] BILIRUBIN Negative Negative [facility] NITRITE Negative Negative [facility] LEUK GIULIANA Negative Negative [facility] RBC/HPF 1 0 - 3 HPF [facility] WBC/HPF 6 (H) 0 - 5 HPF [facility] BACTERIA Few (A) Negative [facility] MUCOUS Slight (A) Negative LPF [facility] SQ EPITH <1 HPF [facility] Specimen Urine - URINE, CATHETERIZED Performing Organization Address City/State/Zipcode Phone Number [facility] CLIA: [id number] [place] [address] documented in this encounter Visit Diagnoses Diagnosis Urinary retention - Primary Retention of urine, unspecified documented in this encounter Insurance Payer Benefit Plan / Subscriber ID Effective Phone Address T ype Group Dates MEDICARE MEDICARE PART A [id number] 2008-Pre [phone] Medicare [id number] [place] D[place] [phone] [employer] [id number] 2005-Pr HMO/PPO /PO ADMINISTRATION ADMINISTRATION curtis Us documented as of this encounter"
[2020-02-05] MEDS ORDERED: LIDOCAINE VISCOUS 2% SOLN 15 ML UDC ONE (16:31)
--- NOTE | 2020-02-05 17:18 | RAD REPORT ---
EXAM DESCRIPTION: CT - Stone Protocol - 02/05/2020 4:53 pm CLINICAL HISTORY: ABD PAIN, hematuria, recent placement of a Umanzor catheter COMPARISON: No comparisons TECHNIQUE: Axial 3 mm thick images were obtained without oral or IV contrast. The [id number] span s the entirety of the system including uppermost abdomen and lung bases. All CT scans are performed using dose optimization technique as appropriate and may include automated exposure control or mA/KV adjustment according to patient size. FINDINGS: No hydronephrosis is present and no obstructing ureteral calculi. No suspicious renal mass es. Isodense masses and pyelonephritis are not excluded on a stone protocol CT scan. No significant a drenal finding. Umanzor catheter has been placed. Patient has marked enlargement of the prostate gland to at least 8.7 cm in transverse diameter. AP diameter is 8.9 cm. Urinary bladder is fully contracted around a Umanzor catheter. No abnormal lymphadenopathy adjacent to the prostate gland. No abnormal aortoiliac lymph no hung seen. Liver shows a mild fatty infiltration pattern with no focal finding on noncontrast imaging. The splee n, pancreas, gallbladder and biliary tree show no suspicious findings. No suspicious bowel findings. No acute bowel process. No other mass and no bulky lymphadenopathy. A very small fat only umbilical hernia present. No free a ir, free fluid or inflammatory stranding. No significant bony abnormality. Patient has significant degenerative disc disease at L5-S1. Trace amount of right pleural fluid present. No pericardial thickening or effusion. IMPRESSION: Marked enlargement of the prostate gland as detailed. Urinary bladder is fully contracte d around the Umanzor catheter. No hydronephrosis, obstructing calculus or acute renal or ureteral process. Isodense masses and pyelonephritis are not excluded on stone protocol technique. Mild diffuse fatty infiltration of the liver.
--- NOTE | 2020-02-05 17:30 | EDPHYS ---
Physician Documentation [facility] Name: Ric Rivas Age: 74 yrs Sex: Male : 1945 Arrival Date: 02/05/2020 Time: 15:52 Bed 13 Private MD: ED Physician Bladimir Green HPI: 02/04 16:08 This 74 yrs old Male presents to ER via Ambulatory with complaints of Blood michael In Catheter. 16:08 The patient presents with a Reece catheter problem, draining bloody urine. Onset: The michael symptoms/episode began/occurred just prior to arrival. Modifying factors: The symptoms are alleviated by nothing, the symptoms are aggravated by movement. Associated signs and symptoms: The patient has no apparent associated signs or symptoms. Severity of symptoms: At their worst the symptoms were mild, moderate, in the emergency department the symptoms are unchanged. Unable to obtain HPI due to patient distress. The patient has not experienced similar symptoms in the past. Historical: - PMHx: 15:53 enlarged prostate; PTSD; urinary retention; ss - PSHx: 15:53 Carpal Tunnel Repair; ss - Immunization history:: Adult Immunizations. - Family history:: not pertinent. ROS: 16:08 Constitutional: Negative for fever, chills, and weight loss, Eyes: Negative for injury, michael pain, redness, and discharge, ENT: Negative for injury, pain, and discharge, Neck: Negative for injury, pain, and swelling, Cardiovascular: Negative for chest pain, palpitations, and edema, Respiratory: Negative for shortness of breath, cough, wheezing, and pleuritic chest pain, Abdomen/GI: Negative for abdominal pain, nausea, vomiting, diarrhea, and constipation, Back: Negative for injury and pain, MS/Extremity: Negative for injury and deformity, Skin: Negative for injury, rash, and discoloration, Neuro: Negative for headache, weakness, numbness, tingling, and seizure, Psych: Negative for depression, anxiety, suicide ideation, homicidal ideation, and hallucinations, Allergy/Immunology: Negative for hives, rash, and allergies, Endocrine: Negative for neck swelling, polydipsia, polyuria, polyphagia, and marked weight changes, Hematologic/Lymphatic: Negative for swollen nodes, abnormal bleeding, and unusual bruising. 16:08 : Positive for hematuria, of the pelvis. Exam: 16:08 Constitutional: This is a well developed, well nourished patient who is awake, alert, michael and in no acute distress. Head/Face: Normocephalic, atraumatic. Eyes: Pupils equal round and reactive to light, extra-ocular motions intact. Lids and lashes normal. Conjunctiva and sclera are non-icteric and not injected. Cornea within normal limits. Periorbital areas with no swelling, redness, or edema. ENT: Nares patent. No nasal discharge, no septal abnormalities noted. Tympanic membranes are normal and external auditory canals are clear. Oropharynx with no redness, swelling, or masses, exudates, or evidence of obstruction, uvula midline. Mucous membranes moist. Neck: Trachea midline, no thyromegaly or masses palpated, and no cervical lymphadenopathy. Supple, full range of motion without nuchal rigidity, or vertebral point tenderness. No Meningismus. Chest/axilla: Normal chest wall appearance and motion. Nontender with no deformity. No lesions are appreciated. Cardiovascular: Regular rate and rhythm with a normal S1 and S2. No gallops, murmurs, or rubs. Normal PMI, no JVD. No pulse deficits. Respiratory: Lungs have equal breath sounds bilaterally, clear to auscultation and percussion. No rales, rhonchi or wheezes noted. No increased work of breathing, no retractions or nasal flaring. Abdomen/GI: Soft, non-tender, with normal bowel sounds. No distension or tympany. No guarding or rebound. No evidence of tenderness throughout. Back: No spinal tenderness. No costovertebral tenderness. Full range of motion. Skin: Warm, dry with normal turgor. Normal color with no rashes, no lesions, and no evidence of cellulitis. MS/ Extremity: Pulses equal, no cyanosis. Neurovascular intact. Full, normal range of motion. Neuro: Awake and alert, GCS 15, oriented to person, place, time, and situation. Cranial nerves II-XII grossly intact. Motor strength 5/5 in all extremities. Sensory grossly intact. Cerebellar exam normal. Normal gait. Psych: Awake, alert, with orientation to person, place and time. Behavior, mood, and affect are within normal limits. 16:08 : CVA tenderness, is absent, Male external genitalia: normal, Bladder: is normal, Sexual behavior: the patient is not sexually active, a reece is noted, urine is blood tinged, noted to have gregorio blood. Vital Signs: 15:58 BP 135 / 75; Pulse 68; Resp 16; Pulse Ox 96% on R/A; Weight 99.79 kg; Pain 0/10; ss 16:53 Temp 98.0(TE); ss Procedures: 16:44 Reece cath inserted by myself - 20 Fr. Urine output = 50 ml's. Patient tolerated well. michael MDM: 16:04 Patient medically screened. [facility] 16:11 Data reviewed: vital signs, nurses notes, lab test result(s), radiologic studies, CT michael scan. 17:28 Differential diagnosis: UTI, urinary retention, Reece catheter problem, prostatitis, michael urethritis. Data interpreted: ekg monitor tech: rate is 68 beats/min, rhythm is regular, Pulse oximetry: on room air is 96 %. Test interpretation: by ED physician or midlevel provider:. Counseling: I had a detailed discussion with the patient and/or guardian regarding: the historical points, exam findings, and any diagnostic results supporting the discharge/admit diagnosis, lab results, radiology results, the need for outpatient follow up, for definitive care, a urologist. 02/04 16:05 Order name: CT Stone Protocol [facility] 02/04 16:05 Order name: Misc. Order: IRRIGATE reece; Complete Time: 16:[address] [facility] 02/04 16:12 Order name: Misc. Order: exchange reece, larger; Complete Time: 16:[address] [facility] Administered Medications: 16:40 Drug: Viscous Lidocaine Liquid (4 %) 10 ml {Note: administered by Dr. Bladimir Green to ss penis prior to reece inseriton. PT tolerated well. Is thankful. .} Route: Mucous Membrane; Disposition: 02/05/20 17:30 Discharged to Home. Impression: Hematuria, Retention of urine, Urinary tract infection, site not specified. - Condition is Stable. - Discharge Instructions: Dysuria, Reece Catheter Care, Adult, Hematuria, Adult, Urinary Tract Infection, Adult, Urinary Tract Infection, Adult, Mnqa-np-Kyao, Acute Urinary Retention, Male, Slrk-qv-Rmwx, Reece Catheter Care, Adult, Bqfa-zi-Tkeu. - Medication Reconciliation Form, Thank You Letter, Antibiotic Education, Prescription Opioid Use form. - Follow up: Private Physician; When: 2 - 3 days; Reason: Recheck today's complaints, Continuance of care, Re-evaluation by your physician. Follow up: Deo Reeves; When: 2 - 3 days; Reason: Recheck today's complaints, Re-evaluation by your physician. - Problem is new. - Symptoms have improved. Signatures: Dispatcher [employer] EDBladimir Mirza MD MD cha Smirch, Shelby, RN RN ss Corrections: (The following items were deleted from the chart) 17:49 17:30 02/05/2020 17:30 Discharged to Home. Impression: Hematuria; Retention of urine; ss Urinary tract infection, site not specified. Condition is Stable. Discharge Instructions: Dysuria, Reece Catheter Care, Adult, Hematuria, Adult, Urinary Tract Infection, Adult, Urinary Tract Infection, Adult, Bjyp-dl-Ycmi, Acute Urinary Retention, Male, Kuqf-fj-Nkij, Reece Catheter Care, Adult, Fjcl-rc-Rmwv. Forms are Medication Reconciliation Form, Thank You Letter, Antibiotic Education, Prescription Opioid Use. Follow up: Private Physician; When: 2 - 3 days; Reason: Recheck today's complaints, Continuance of care, Re-evaluation by your physician. Follow up: Deo Reeves; When: 2 - 3 days; Reason: Recheck today's complaints, Re-evaluation by your physician. Problem is new. Symptoms have improved. michael
--- NOTE | 2020-02-05 17:30 | ER ---
Nurse's Notes [facility] Name: Ric Rivas Age: 74 yrs Sex: Male : 1945 Arrival Date: 02/05/2020 Time: 15:52 Bed 13 Private MD: Diagnosis: Hematuria;Retention of urine;Urinary tract infection, site not specified Presentation: 02/04 15:52 Chief complaint: Patient states: Seen in ED earlier and had reece catheter placed. Pt ss is back because he has blood in urine bag. Coronavirus screen: Client denies travel out of the [place] in the last 14 days. Ebola Screen: Patient denies exposure to infectious person. Patient denies travel to an Ebola-affected area in the 21 days before illness onset. Initial Sepsis Screen: Does the patient meet any 2 criteria? No. Patient's initial sepsis screen is negative. Does the patient have a suspected source of infection? No. Patient's initial sepsis screen is negative. Risk Assessment: Do you want to hurt yourself or someone else? Patient reports no desire to harm self or others. Onset of symptoms was February 05, 2020. 15:52 Method Of Arrival: Ambulatory ss 15:52 Acuity: BOBBY 4 ss Historical: - PMHx: 15:53 enlarged prostate; PTSD; urinary retention; ss - PSHx: 15:53 Carpal Tunnel Repair; ss - Immunization history:: Adult Immunizations. - Family history:: not pertinent. Screenin:58 Abuse screen: Denies threats or abuse. Denies injuries from another. Nutritional ss screening: No deficits noted. Tuberculosis screening: Never had TB. Fall Risk None identified. Assessment: 15:52 General: Appears in no apparent distress. comfortable, Behavior is calm, cooperative, ss Denies fever, feeling ill, fatigue, chills. Pain: Denies pain. Neuro: Level of Consciousness is awake, alert, obeys commands. Cardiovascular: Capillary refill < 3 seconds is brisk in bilateral fingers. Respiratory: Airway is patent Respiratory effort is even, unlabored, Respiratory pattern is regular, symmetrical. : Reports blood in urine just prior to arrival. PT was seen in ER for unable to urinate and had reece placed. EENT: Oral mucosa is moist. Derm: Skin is intact, is healthy with good turgor, Skin is dry, Skin is pink, warm \T\ dry. normal. Musculoskeletal: Circulation, motion, and sensation intact. Range of motion: intact in all extremities, Swelling absent. 15:55 Reassessment: Attempted to irrigate reece. Able to flush, but not pull back any fluid. Dr. Belcher notified. Order to take out 16F coude and place larger 20 occitan LOWE reece. PT wants to leave without reece. Dr. Green notified. 16:15 Reassessment: Dr. Green at bedside discussing with patient importance of placing ss new/ larger reece. Pt okay with plan of care. 16:45 Reassessment: Pt to CT at this time VIA wheelchair. Vital Signs: 15:58 BP 135 / 75; Pulse 68; Resp 16; Pulse Ox 96% on R/A; Weight 99.79 kg; Pain 0/10; ss 16:53 Temp 98.0(TE); ED Course: 15:52 Patient arrived in ED. 15:53 Triage completed. 15:53 Arm band placed on right wrist. 15:58 Patient has correct armband on for positive identification. Bed in low position. Call ss light in reach. 16:04 Bladimir Green MD is Attending Physician. [facility] 16:44 Marcela Hopkins RN is Primary Nurse. 16:44 Reece cath inserted, using sterile technique, 20 Fr., by ED staff, balloon inflated, to ss gravity drainage, other urine draining freely. Approximately 60 mL Patient tolerated well. 16 F coude removed. Pt tolerated well. 16:53 CT Stone Protocol In Process Unspecified. EDMS 17:29 Deo Reeves MD is Referral Physician. [facility] 17:48 No provider procedures requiring assistance completed. Patient did not have IV access ss during this emergency room visit. Administered Medications: 16:40 Drug: Viscous Lidocaine Liquid (4 %) 10 ml {Note: administered by Dr. Bladimir Green to ss penis prior to reece inseriton. PT tolerated well. Is thankful. .} Route: Mucous Membrane; Outcome: 17:30 Discharge ordered by . michael 17:48 Discharged to home via wheelchair, with family. ss 17:48 Condition: good 17:48 Discharge instructions given to patient, family, Instructed on discharge instructions, follow up and referral plans. Demonstrated understanding of instructions, follow-up care. 17:49 Patient left the ED. ss Signatures: Dispatcher [employer] Bladimir Britt MD MD cha Smirch, Shelby, RN RN ss
[2020-02-05 18:28] VITALS: BP 135/75; O2SAT 96
[2020-02-05 18:29] VITALS: TEMP 98
== END 2020-02-05 17:49 | disposition home or self-care (01) ==
LOC: ER 15:50
DX: N39.0 Urinary tract infection, site not specified (principal); R31.9 Hematuria, unspecified
CPT/HCPCS: 51702; 74176; 76377; 99284

== ENCOUNTER 2020-02-06 13:36 | Emergency (ER) | payer OTHER ==
--- OUTSIDE RECORDS SUMMARY | 2020-02-06 13:38 | XMS REPORT | Continuity of Care Document ---
:1945 Author Organization [facility] t Address [address] [place] [address] Care Team Providers Name Role Phone Perry [...] Department ID 2020-02-02 2020-02-02 Emergency SAMIA Perry [id number] 06:41:00 08:15:00 Chun Dinh [id number] [place] [id number] [place] [id number] [id number] 2020-02-02 2020-02-02 Orders Doctor RIVAS [id number] 00:00:00 00:00:00 Only UnassSANDRINE ortega [id number] [place] [facility] [id number] [id number] 2019-08-11 2019-08-11 Emergency Singer [facility] [id number] 11:46:26 12:23:00 Chun Dinh [id number] [place] [id number] [place] [id number] 2019-08-11 2019-08-11 Orders Doctor RIVAS [id number] 00:00:00 00:00:00 Only UnassignedKRISTINAY [id number] [place] [facility] [id number] [id number] 2019-01-09 2019-01-09 Emergency Singer [facility] [id number] 06:54:45 09:43:00 Chun [place] [id number] [place] [id number] [place] [id number] 2019-01-09 2019-01-09 Orders Doctor EVELYN [id number] 00:00:00 00:00:00 Only Unassigned SANDRINE [id number] [place] [id number] Results This patient has no known results.
--- OUTSIDE RECORDS SUMMARY | 2020-02-06 13:38 | XMS REPORT | Summary of Care ---
:1945 Author Organization [facility] Address [address] [place] [address] Care Team Providers Name Role Phone [place], [facility] Provider + Reason for Visit Reason Comments Constipation URINARY RETENTION Auth/Cert Status Reason Specialty Diagnoses / Referred By Referred To Procedures Contact Contact Emergency Medicine Diagnoses CONSTIPATION Adc Emergency Dept [address] [place] [address] Fax: Encounter Details Date Type Department Care Team Description 02/02/2020 Emergency ADC-Emergency Chun Perry DO Urinary retention Department [address] [place] [address]. (Primary Dx) 132 [facility] [address] [place] [address] [place] [address] [phone] Allergies No Known Allergiesdocumented as of this [...] PHYSICIAN OF YOUR CHOICE 2. [facility], . LOCATIONS IN [facility] 3. [facility], [address] [place] [address]; [phone] OR, IF YOU WISH TO FOLLOW-UP WITHIN THE [facility], MAY TRY THESE OPTIONS (CLINIC APPOINTMENTS AVAILABLE ON HEOR-CZ-NGZP BASIS): 1. SCHEDULE AN APPOINTMENT ONLINE AT [facility] 2. OR CALL THE [facility] AT OR 3. OR CALL YOUR [facility] PHYSICIAN'S OFFICE DIRECTLY IF YOU ARE ALREADY AN ESTABLISHED [facility] PATIENT. RETURN TO ER FOR WORSENING OF SYMPTOMS. AttachmentsThe following attachments cannot be sent through Care Everywhere. Catheter Care, Reece (Slovak)Urinary Retention, Male (Slovak)documented in this encounter ED Notes Chris Rousseau RN - 02/02/2020 6:42 AM CDTPatient complaining of constipation and urinary incontinence. Also reports this happened about 1 year ago. History of enlarged prostate and has had to have a reece catheter placed. 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 [facility] [address] Instructions: For follow up of the presenting symptoms. ADC-Emergency Department Specialty: Emergency Medicine 132 [facility] [address] Instructions: If symptoms worsen as documented in [...] CDT) Pathologist Sig nature APPEARANCE Clear Clear [facility] COLOR Yellow Yellow [facility] PH 6.0 4.8 - 8.0 [facility] SP GRAVITY 1.008 1.003 - 1.030 [facility] GLU U QUAL Normal Normal [facility] BLOOD 1+ (A) Negative [facility] KETONES Negative Negative [facility] PROTEIN Negative Negative [facility] UROBILIN Normal Normal [facility] BILIRUBIN Negative Negative [facility] NITRITE Negative Negative [facility] LEUK GIULIANA Negative Negative [facility] RBC/HPF 1 0 - 3 HPF [facility] WBC/HPF 6 (H) 0 - 5 HPF [facility] BACTERIA Few (A) Negative [facility] MUCOUS Slight (A) Negative LPF [facility] SQ EPITH <1 HPF [facility] Specimen Urine - URINE, CATHETERIZED Performing Organization Address City/State/Zipcode Phone Number [facility] CLIA: [id number] [place] [address] documented in this encounter Visit Diagnoses Diagnosis Urinary retention - Primary Retention of urine, unspecified documented in this encounter Insurance Payer Benefit Plan / Subscriber ID Effective Phone Address T ype Group Dates MEDICARE MEDICARE PART A [id number] 2008-Pre [phone] Medicare [id number] [place] D[place] [phone] [employer] [id number] 2005-Pr HMO/PPO /PO ADMINISTRATION ADMINISTRATION curtis Us documented as of this encounter"
--- OUTSIDE RECORDS SUMMARY | 2020-02-06 13:38 | XMS REPORT | Summary of Care ---
:1945 Author Organization [facility] - Health Address [address] [place] [address] Care Team Providers Name Role Phone [place], [facility] Quoc Christensen [facility] Primary Care Provider + Encounter Details Date Type Department Care Team Description 02/02/2020 Orders Only [facility] Doctor Unassigned, No 301 [facility] [place] [address] [address] [place] [address] Allergies No Known Allergiesdocumented as of this [...] ype Group Dates MEDICARE MEDICARE PART A [id number] 2008-Pre [phone] Medicare sent [id number] [place] DIA [phone] [employer] [id number] 2005-Pr HMO/PPO /PO ADMINISTRATION ADMINISTRATION esent S [facility] [id number] 2005-Pr HMO/PPO /PO ADMINISTRATION esent S documented as of this encounter
--- NOTE | 2020-02-06 15:03 | EDPHYS ---
Physician Documentation [facility] Name: Ric Rivas Age: 74 yrs Sex: Male : 1945 Arrival Date: 02/06/2020 Time: 13:38 Bed 16 Private MD: ED Physician Bladimir Green HPI: 02/05 15:04 This 74 yrs old Male presents to ER via Ambulatory with complaints of Problem michael With Urinary Catheter. 15:04 The patient presents with urinary symptoms, dysuria, hesitancy to initiate urine michael stream. Onset: The symptoms/episode began/occurred 2 day(s) ago. Modifying factors: The symptoms are alleviated by nothing, the symptoms are aggravated by nothing. Associated signs and symptoms: The patient has no apparent associated signs or symptoms. Severity of symptoms: At their worst the symptoms were mild, in the emergency department the symptoms are unchanged. The patient has not experienced similar symptoms in the past. Historical: - Allergies: 13:50 No Known Allergies; ll1 - PMHx: 13:50 enlarged prostate; PTSD; urinary retention; ll1 - PSHx: 13:50 Carpal Tunnel Repair; ll1 - Immunization history:: Flu vaccine is up to date. - Social history:: Smoking status: Patient denies any tobacco usage or history of. - Family history:: not pertinent. ROS: 15:04 Constitutional: Negative for fever, chills, and weight loss, Eyes: Negative for injury, michael pain, redness, and discharge, ENT: Negative for injury, pain, and discharge, Neck: Negative for injury, pain, and swelling, Cardiovascular: Negative for chest pain, palpitations, and edema, Respiratory: Negative for shortness of breath, cough, wheezing, and pleuritic chest pain, Back: Negative for injury and pain, MS/Extremity: Negative for injury and deformity, Skin: Negative for injury, rash, and discoloration, Neuro: Negative for headache, weakness, numbness, tingling, and seizure, Psych: Negative for depression, anxiety, suicide ideation, homicidal ideation, and hallucinations, Allergy/Immunology: Negative for hives, rash, and allergies, Endocrine: Negative for neck swelling, polydipsia, polyuria, polyphagia, and marked weight changes, Hematologic/Lymphatic: Negative for swollen nodes, abnormal bleeding, and unusual bruising. 15:04 Abdomen/GI: Negative for abdominal pain. 15:04 : Positive for hematuria, burning with urination. Exam: 15:04 Constitutional: This is a well developed, well nourished patient who is awake, alert, michael and in no acute distress. Head/Face: Normocephalic, atraumatic. Eyes: Pupils equal round and reactive to light, extra-ocular motions intact. Lids and lashes normal. Conjunctiva and sclera are non-icteric and not injected. Cornea within normal limits. Periorbital areas with no swelling, redness, or edema. ENT: Nares patent. No nasal discharge, no septal abnormalities noted. Tympanic membranes are normal and external auditory canals are clear. Oropharynx with no redness, swelling, or masses, exudates, or evidence of obstruction, uvula midline. Mucous membranes moist. Neck: Trachea midline, no thyromegaly or masses palpated, and no cervical lymphadenopathy. Supple, full range of motion without nuchal rigidity, or vertebral point tenderness. No Meningismus. Chest/axilla: Normal chest wall appearance and motion. Nontender with no deformity. No lesions are appreciated. Cardiovascular: Regular rate and rhythm with a normal S1 and S2. No gallops, murmurs, or rubs. Normal PMI, no JVD. No pulse deficits. Respiratory: Lungs have equal breath sounds bilaterally, clear to auscultation and percussion. No rales, rhonchi or wheezes noted. No increased work of breathing, no retractions or nasal flaring. Abdomen/GI: Soft, non-tender, with normal bowel sounds. No distension or tympany. No guarding or rebound. No evidence of tenderness throughout. Back: No spinal tenderness. No costovertebral tenderness. Full range of motion. Skin: Warm, dry with normal turgor. Normal color with no rashes, no lesions, and no evidence of cellulitis. MS/ Extremity: Pulses equal, no cyanosis. Neurovascular intact. Full, normal range of motion. Neuro: Awake and alert, GCS 15, oriented to person, place, time, and situation. Cranial nerves II-XII grossly intact. Motor strength 5/5 in all extremities. Sensory grossly intact. Cerebellar exam normal. Normal gait. Psych: Awake, alert, with orientation to person, place and time. Behavior, mood, and affect are within normal limits. 15:04 : Male external genitalia: normal, no abrasion, Bladder: is normal, Sexual behavior: the patient is not sexually active. Vital Signs: 13:48 BP 143 / 85; Pulse 69; Resp 17; Temp 99.3; Pulse Ox 96% ; Pain 1/10; ll1 Procedures: 15:07 Bladder irrigated via Reece with 50 ml normal saline returned clear fluid Patient michael tolerated well. MDM: 13:52 Patient medically screened. [facility] 15:06 Differential diagnosis: UTI, urinary retention, Reece catheter problem. Data reviewed: [facility] vital signs, nurses notes, lab test result(s). Data interpreted: athletic monitor: rate is 69 beats/min, rhythm is regular, Pulse oximetry: on room air is 96 %. Counseling: I had a detailed discussion with the patient and/or guardian regarding: the historical points, exam findings, and any diagnostic results supporting the discharge/admit diagnosis, lab results, the need for outpatient follow up, for definitive care, a urologist. 02/05 13:53 Order name: Michael. Order: irrigate reece; Complete Time: 15:00 [facility] Administered Medications: No medications were administered Disposition: 02/06/20 15:02 Discharged to Home. Impression: Hematuria, Urinary tract infection, site not specified. - Condition is Stable. - Discharge Instructions: Dysuria, Reece Catheter Care, Adult, Hematuria, Adult, Urinary Tract Infection, Adult, Urinary Tract Infection, Adult, [id number]-[id number], Reece Catheter Care, Adult, Kojx-nl-Byks. - Medication Reconciliation Form, Thank You Letter, Antibiotic Education, Prescription Opioid Use form. - Follow up: Private Physician; When: 2 - 3 days; Reason: Recheck today's complaints, Continuance of care, Re-evaluation by your physician. Follow up: Deo Reeves MD; When: 1 - 2 days; Reason: Recheck today's complaints, Continuance of care, Re-evaluation by your physician. - Problem is new. - Symptoms have improved. Signatures: Bladimir Green MD MD cha Davies, Jonathon, RN RN jd3 Lewis, Lynsay, RN RN ll1 Corrections: (The following items were deleted from the chart) 15:09 15:02 02/06/2020 15:02 Discharged to Home. Impression: Hematuria; Urinary tract jd3 infection, site not specified. Condition is Stable. Forms are Medication Reconciliation Form, Thank You Letter, Antibiotic Education, Prescription Opioid Use. Follow up: Private Physician; When: 2 - 3 days; Reason: Recheck today's complaints, Continuance of care, Re-evaluation by your physician. Follow up: Deo Reeves; When: 1 - 2 days; Reason: Recheck today's complaints, Continuance of care, Re-evaluation by your physician. Problem is new. Symptoms have improved. michael
--- NOTE | 2020-02-06 15:03 | ER ---
Nurse's Notes [facility] Name: Ric Rivas Age: 74 yrs Sex: Male : 1945 Arrival Date: 02/06/2020 Time: 13:38 Bed 16 Private MD: Diagnosis: Hematuria;Urinary tract infection, site not specified Presentation: 02/05 13:48 Chief complaint: Patient states: States it seems like his reece cath is not draining ll1 urine at times. Pressure to pelvic area at times. No fever. Coronavirus screen: Client denies travel out of the [place] in the last 14 days. At this time, the client does not indicate any symptoms associated with coronavirus-19. Ebola Screen: Patient denies travel to an Ebola-affected area in the 21 days before illness onset. Initial Sepsis Screen: Does the patient meet any 2 criteria? No. Patient's initial sepsis screen is negative. Does the patient have a suspected source of infection? Yes: Dysuria/Frequency/Urgency/UTI. Risk Assessment: Do you want to hurt yourself or someone else? Patient reports no desire to harm self or others. Onset of symptoms was February 05, 2020. 13:48 Method Of Arrival: Ambulatory ll1 13:48 Acuity: BOBBY 4 ll1 Historical: - Allergies: 13:50 No Known Allergies; ll1 - PMHx: 13:50 enlarged prostate; PTSD; urinary retention; ll1 - PSHx: 13:50 Carpal Tunnel Repair; ll1 - Immunization history:: Flu vaccine is up to date. - Social history:: Smoking status: Patient denies any tobacco usage or history of. - Family history:: not pertinent. Screenin:02 Abuse screen: Denies threats or abuse. Nutritional screening: No deficits noted. jd3 Tuberculosis screening: No symptoms or risk factors identified. Fall Risk Ambulatory Aid- None/Bed Rest/Nurse Assist (0 pts). Gait- Normal/Bed Rest/Wheelchair (0 pts) Mental Status- Oriented to own ability (0 pts). Total Cortez Fall Scale indicates No Risk (0-24 pts). Assessment: 14:30 General: Appears in no apparent distress. uncomfortable, Behavior is calm, cooperative, jd3 appropriate for age. Pain: Complains of pain in suprapubic area Quality of pain is described as aching. Neuro: Level of Consciousness is awake, alert, obeys commands, Oriented to person, place, time, situation. Cardiovascular: Denies chest pain, Capillary refill < 3 seconds Patient's skin is warm and dry. Respiratory: Airway is patent Respiratory effort is even, unlabored, Respiratory pattern is regular, symmetrical. GI: No signs and/or symptoms were reported involving the gastrointestinal system. : Reports clogging of Reece cath. EENT: No signs and/or symptoms were reported regarding the EENT system. Derm: Skin is intact, Skin is dry, Skin is normal, Skin temperature is warm. Musculoskeletal: Circulation, motion, and sensation intact. Range of motion: intact in all extremities. 15:02 Reassessment: Patient appears in no apparent distress at this time. Patient and/or jd3 family updated on plan of care and expected duration. Pain level reassessed. Patient is alert, oriented x 3, equal unlabored respirations, skin warm/dry/pink. Reece irrigated. flowing freely at this time. Vital Signs: 13:48 BP 143 / 85; Pulse 69; Resp 17; Temp 99.3; Pulse Ox 96% ; Pain 1/10; ll1 ED Course: 13:38 Patient arrived in ED. mr 13:49 Triage completed. ll1 13:50 Arm band placed on Patient placed in an exam room, on a stretcher. ll1 13:52 Bladimir Green MD is Attending Physician. [facility] 15:00 César Meredith, STACY is Primary Nurse. [facility] 15:02 Deo Reeves MD is Referral Physician. [facility] 15:02 No provider procedures requiring assistance completed. Patient did not have IV access jd3 during this emergency room visit. 15:03 Patient has correct armband on for positive identification. Bed in low position. Call jd3 light in reach. Side rails up X 1. Adult w/ patient. Pulse ox on. NIBP on. Administered Medications: No medications were administered Outcome: 15:02 Discharge ordered by . [facility] 15:09 Discharged to home ambulatory, with family. [facility] 15:09 Condition: stable 15:09 Discharge instructions given to patient, family, Instructed on discharge instructions, follow up and referral plans. Demonstrated understanding of instructions, follow-up care. 15:09 Patient left the ED. j Signatures: Bladimir Green MD MD cha Rivera, Mary mr Masoud, César, RN RN jd3 Lexi Paredes, RN RN ll1
[2020-02-06 15:14] VITALS: BP 143/85; TEMP 99.3; O2SAT 96
== END 2020-02-06 15:09 | disposition home or self-care (01) ==
LOC: ER 13:36
DX: N39.0 Urinary tract infection, site not specified (principal); R31.9 Hematuria, unspecified
CPT/HCPCS: 51700; 99283

== ENCOUNTER 2020-02-07 01:53 | Emergency (ER) | payer OTHER ==
--- OUTSIDE RECORDS SUMMARY | 2020-02-07 01:56 | XMS REPORT | Continuity of Care Document ---
:1945 Author Organization [facility] t Address [address] [place] [address] Care Team Providers Name Role Phone Perry [...] Department ID 2020-02-02 2020-02-02 Emergency SAMIA Perry [id number] 06:41:00 08:15:00 Chun Dinh [id number] [place] 4.2.7.2.686 [place] [id number] 2020-02-02 2020-02-02 Orders Doctor RIVAS [id number] 00:00:00 00:00:00 Only UnassSANDRINE ortega [id number] Sylvester [facility] [id number] [id number] 2019-08-11 2019-08-11 Emergency Singer [facility] [id number] 11:46:26 12:23:00 Chun Dinh [id number] [place] 4.2.7.2.686 [place] [id number] 2019-08-11 2019-08-11 Orders Doctor RIVAS [id number] 00:00:00 00:00:00 Only UnassignedKRISTINAY [id number] Sylvester [facility] [id number] [id number] 2019-01-09 2019-01-09 Emergency Singer [facility] [id number] 06:54:45 09:43:00 Chun Nolenton [id number] [place] 4.2.7.2.686 [place] [id number] 2019-01-09 2019-01-09 Orders Doctor EVELYN [id number] 00:00:00 00:00:00 Only Unassigned SANDRINE [id number] [place] [id number] [id number] Results This patient has no known results.
--- OUTSIDE RECORDS SUMMARY | 2020-02-07 01:56 | XMS REPORT | Summary of Care ---
:1945 Author Organization [facility] Address [address] [place] [address] Care Team Providers Name Role Phone [place], [facility] Primary Care Provider + Reason for Visit Reason Comments Constipation URINARY RETENTION Auth/Cert Status Reason Specialty Diagnoses / Referred By Referred To Procedures Contact Contact Emergency Medicine Diagnoses CONSTIPATION Adc Emergency Dept [address] [place] [address] Fax: Encounter Details Date Type Department Care Team Description 02/02/2020 Emergency ADC-Emergency Chun Perry DO Urinary retention Department [address] [place] [address]. (Primary Dx) 132 [facility] [address] [place] [address] [place] [address] [phone] Allergies No Known Allergiesdocumented as of this [...] 1. A PHYSICIAN OF YOUR CHOICE 2. RETREAT [facility], . LOCATIONS IN [facility] 3. [facility], [address] [place] [address]; [phone] OR, IF YOU WISH TO FOLLOW-UP WITHIN THE [facility], MAY TRY THESE OPTIONS (CLINIC APPOINTMENTS AVAILABLE ON PYSB-QV-VPFP BASIS): 1. SCHEDULE AN APPOINTMENT ONLINE AT [facility] 2. OR CALL THE [facility] ACCESS CENTER AT OR 3. OR CALL YOUR [facility] PHYSICIAN'S OFFICE DIRECTLY IF YOU ARE ALREADY AN ESTABLISHED [facility] PATIENT. RETURN TO ER FOR WORSENING OF SYMPTOMS. AttachmentsThe following attachments cannot be sent through Care Everywhere. Catheter Care, Reece (South African)Urinary Retention, Male (South African)documented in this encounter ED Notes Chris Rousseau RN - 02/02/2020 6:42 AM CDTPatient complaining of constipation and urinary incontinence. Also reports this happened about 1 year ago. History of enlarged prostate and has had to have a reece catheter placed. Chun Perry DO - 02/02/2020 6:31 AM CDT EMERGENCY DEPARTMENT ENCOUNTER [facility] Patient Name: Ric Rivas Date of : 1945 74 year old Exam Room:TX2/TX2 Primary Care Physician: [facility] Patient Escorted by: Self [9] Mode of Arrival: Personal means [1] EMS Treatment Prior to ED Arrival: POLICE OFFICER BOOKING treatment: None Chief Complaint Chief Complaint Patient [...] on file Contact information for follow-up Center, [place] Deo Christensen Medical Relationship: PCP - General [address] [place] [address]. [facility] [address] Instructions: For follow up of the presenting symptoms. ADC-Emergency Department Specialty: Emergency Medicine 132 [facility] [address] Instructions: If symptoms worsen as documented in [...] CDT) Pathologist Sig nature APPEARANCE Clear Clear [facility] COLOR Yellow Yellow [facility] PH 6.0 4.8 - 8.0 [facility] SP GRAVITY 1.008 1.003 - 1.030 [facility] GLU U QUAL Normal Normal [facility] BLOOD 1+ (A) Negative [facility] KETONES Negative Negative [facility] PROTEIN Negative Negative [facility] UROBILIN Normal Normal [facility] BILIRUBIN Negative Negative [facility] NITRITE Negative Negative [facility] LEUK GIULIANA Negative Negative [facility] RBC/HPF 1 0 - 3 HPF [facility] WBC/HPF 6 (H) 0 - 5 HPF [facility] BACTERIA Few (A) Negative [facility] MUCOUS Slight (A) Negative LPF [facility] SQ EPITH <1 HPF [facility] Specimen Urine - URINE, CATHETERIZED Performing Organization Address City/State/Zipcode Phone Number [facility] CLIA: [id number] [place] [address] documented in this encounter Visit Diagnoses Diagnosis Urinary retention - Primary Retention of urine, unspecified documented in this encounter Insurance Payer Benefit Plan / Subscriber ID Effective Phone Address T ype Group Dates MEDICARE MEDICARE PART A [id number] 2008-Pre [phone] Medicare gssq [id number] [place] D[place] [phone] [employer] [id number] 2005-Pr HMO/PPO /PO ADMINISTRATION ADMINISTRATION curtis Us documented as of this encounter"
--- OUTSIDE RECORDS SUMMARY | 2020-02-07 01:56 | XMS REPORT | Summary of Care ---
:1945 Author Organization [facility] - Health Address [address] [place] [address] Care Team Providers Name Role Phone [place], [facility] Quoc Christensen [facility] Primary Care Provider + Encounter Details Date Type Department Care Team Description 02/02/2020 Orders Only [facility] Doctor Unassigned, No [address] [facility] [place] [address] [address] [place] [address] Allergies No Known Allergiesdocumented as of this [...] ype Group Dates MEDICARE MEDICARE PART A [id number] 2008-Pre [phone] Medicare sent [id number] [place] DIA [phone] [employer] [id number] 2005-Pr HMO/PPO /PO ADMINISTRATION ADMINISTRATION esent S [employer] [facility] [id number] 2005-Pr HMO/PPO /PO ADMINISTRATION esent S documented as of this encounter
--- NOTE | 2020-02-07 02:38 | EDPHYS ---
Physician Documentation [facility] Name: Ric Rivas Age: 74 yrs Sex: Male : 1945 Arrival Date: 02/07/2020 Time: 01:56 Bed 19 Private MD: ED Physician Slade Rutledge HPI: 02/06 02:23 This 74 yrs old Male presents to ER via Ambulatory with complaints of Urinary tw4 Problem. 02:23 The patient presents with a Umanzor catheter problem, is leaking urine. Onset: The tw4 symptoms/episode began/occurred today. Modifying factors: The symptoms are alleviated by nothing, the symptoms are aggravated by nothing. Associated signs and symptoms: The patient has no apparent associated signs or symptoms. The patient has not experienced similar symptoms in the past. Historical: - Allergies: 02:11 No Known Allergies; tl1 - Home Meds: 02:11 Bupropion Oral [Active]; Flomax Oral [Active]; tl1 - PMHx: 02:11 enlarged prostate; PTSD; urinary retention; tl1 - Immunization history:: Adult Immunizations up to date. - Social history:: Smoking status: Patient/guardian denies using alcohol, street drugs, tobacco products. ROS: 02:23 Constitutional: Negative for fever, chills, and weight loss, Eyes: Negative for injury, tw4 pain, redness, and discharge, Cardiovascular: Negative for chest pain, palpitations, and edema, Respiratory: Negative for shortness of breath, cough, wheezing, and pleuritic chest pain, Abdomen/GI: Negative for abdominal pain, nausea, vomiting, diarrhea, and constipation, Skin: Negative for injury, rash, and discoloration, Neuro: Negative for headache, weakness, numbness, tingling, and seizure. 02:23 : Positive for difficulty urinating. Exam: 02:23 Constitutional: This is a well developed, well nourished patient who is awake, alert, tw4 and in no acute distress. Head/Face: Normocephalic, atraumatic. Chest/axilla: Normal chest wall appearance and motion. Nontender with no deformity. No lesions are appreciated. Cardiovascular: Regular rate and rhythm with a normal S1 and S2. No gallops, murmurs, or rubs. Normal PMI, no JVD. No pulse deficits. Respiratory: Lungs have equal breath sounds bilaterally, clear to auscultation and percussion. No rales, rhonchi or wheezes noted. No increased work of breathing, no retractions or nasal flaring. 02:23 Skin: Warm, dry with normal turgor. Normal color with no rashes, no lesions, and no evidence of cellulitis. MS/ Extremity: Pulses equal, no cyanosis. Neurovascular intact. Full, normal range of motion. 02:23 Abdomen/GI: Inspection: abdomen appears normal, Bowel sounds: normal, Palpation: moderate abdominal tenderness, in the suprapubic area. Vital Signs: 02:09 BP 151 / 77; Pulse 85; Resp 17; Temp 98.2; Pulse Ox 97% ; Weight 99.79 kg; Height 6 ft. tl1 0 in. (182.88 cm); Pain 1/10; 02:56 BP 145 / 77; Pulse 72; Resp 17; Pulse Ox 100% ; Pain 0/10; tl1 02:09 Body Mass Index 29.84 (99.79 kg, 182.88 cm) tl1 MDM: 02:03 Patient medically screened. tw4 02:23 Differential diagnosis: nonspecific abdominal pain, appendicitis, UTI. Data reviewed: tw4 vital signs, nurses notes. Data interpreted: Pulse oximetry: Interpretation: normal. Counseling: I had a detailed discussion with the patient and/or guardian regarding: the historical points, exam findings, and any diagnostic results supporting the discharge/admit diagnosis. ED course: Umanzor replaced and blood clot was found on end of Umanzor, New catheter placed with flow of clear urine . Administered Medications: No medications were administered Disposition: 02/07/20 02:37 Discharged to Home. Impression: Retention of urine, unspecified. - Condition is Stable. - Discharge Instructions: Acute Urinary Retention, Male. - Medication Reconciliation Form, Thank You Letter, Antibiotic Education, Prescription Opioid Use form. - Follow up: Private Physician; When: Upon discharge from the Emergency Department; Reason: Recheck today's complaints, Continuance of care, Re-evaluation by your physician. Follow up: Ronda Casanova MD; When: Upon discharge from the Emergency Department; Reason: Recheck today's complaints, Continuance of care, Re-evaluation by your physician. - Problem is new. - Symptoms have improved. Signatures: Tash Brian RN RN tl1 Slade Rutledge MD MD tw4 Corrections: (The following items were deleted from the chart) 02:57 02:37 02/07/2020 02:37 Discharged to Home. Impression: Retention of urine, unspecified. tl1 Condition is Stable. Forms are Medication Reconciliation Form, Thank You Letter, Antibiotic Education, Prescription Opioid Use. Follow up: Private Physician; When: Upon discharge from the Emergency Department; Reason: Recheck today's complaints, Continuance of care, Re-evaluation by your physician. Follow up: Ronda Casanova; When: Upon discharge from the Emergency Department; Reason: Recheck today's complaints, Continuance of care, Re-evaluation by your physician. Problem is new. Symptoms have improved. tw4
--- NOTE | 2020-02-07 02:38 | ER ---
Nurse's Notes [facility] Name: Ric Rivas Age: 74 yrs Sex: Male : 1945 Arrival Date: 02/07/2020 Time: 01:56 Bed 19 Private MD: Diagnosis: Retention of urine, unspecified Presentation: 02/06 02:09 Chief complaint: Patient states: Urinary catheter put in today at the ER and it is not tl1 draining. Coronavirus screen: Client denies travel out of the [place] in the last 14 days. At this time, the client does not indicate any symptoms associated with coronavirus-19. Ebola Screen: Patient negative for fever greater than or equal to 101.5 degrees Fahrenheit, and additional compatible Ebola Virus Disease symptoms Patient denies exposure to infectious person. Patient denies travel to an Ebola-affected area in the 21 days before illness onset. Initial Sepsis Screen: Does the patient meet any 2 criteria? No. Patient's initial sepsis screen is negative. Does the patient have a suspected source of infection? No. Patient's initial sepsis screen is negative. Risk Assessment: Do you want to hurt yourself or someone else? Patient reports no desire to harm self or others. Onset of symptoms was February 07, 2020. 02:09 Method Of Arrival: Ambulatory tl1 02:09 Acuity: BOBBY 3 tl1 Historical: - Allergies: 02:11 No Known Allergies; tl1 - Home Meds: 02:11 Bupropion Oral [Active]; Flomax Oral [Active]; tl1 - PMHx: 02:11 enlarged prostate; PTSD; urinary retention; tl1 - Immunization history:: Adult Immunizations up to date. - Social history:: Smoking status: Patient/guardian denies using alcohol, street drugs, tobacco products. Screenin:38 Abuse screen: Denies threats or abuse. Denies injuries from another. Nutritional tl1 screening: No deficits noted. Tuberculosis screening: No symptoms or risk factors identified. Fall Risk None identified. Assessment: 02:35 General: Appears uncomfortable, Behavior is cooperative, appropriate for age, anxious. tl1 Pain: Complains of pain in groin Pain currently is 3 out of 10 on a pain scale. at worst was 10 out of 10 on a pain scale. Neuro: No deficits noted. Cardiovascular: Reports None. Respiratory: No deficits noted. Airway is patent Respiratory effort is even, unlabored. GI: Abdomen is distended. 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 EENT: No deficits noted. Derm: No deficits noted. Vital Signs: 02:09 BP 151 / 77; Pulse 85; Resp 17; Temp 98.2; Pulse Ox 97% ; Weight 99.79 kg; Height 6 ft. tl1 0 in. (182.88 cm); Pain 1/10; 02:56 BP 145 / 77; Pulse 72; Resp 17; Pulse Ox 100% ; Pain 0/10; tl1 02:09 Body Mass Index 29.84 (99.79 kg, 182.88 cm) tl1 ED Course: 01:56 Patient arrived in ED. ag3 02:02 Slade Rutledge MD is Attending Physician. tw4 02:10 Triage completed. tl1 02:11 Arm band placed on right wrist. tl1 02:20 Patient has correct armband on for positive identification. Placed in gown. Bed in low tl1 position. Call light in reach. 02:35 Tash Brian, STACY is Primary Nurse. tl1 02:36 Ronda Casanova MD is Referral Physician. tw4 02:38 No provider procedures requiring assistance completed. Patient did not have IV access tl1 during this emergency room visit. 02:38 Reece cath balloon deflated. tl1 02:39 Reece cath inserted, using sterile technique, 16 Fr., by nj, balloon inflated, to tl1 gravity drainage. Administered Medications: No medications were administered Outcome: 02:37 Discharge ordered by . tw4 02:39 Discharged to home ambulatory, with family. tl1 02:39 Condition: improved 02:39 Discharge instructions given to patient, family, Instructed on discharge instructions, follow up and referral plans. reece care Demonstrated understanding of instructions, follow-up care. 02:57 Patient left the ED. tl1 Signatures: Tash Brian, STACY RN tl1 Slade Rutledge MD MD tw4 Jennifer Gould ag3
[2020-02-07 03:09] VITALS: BP 145/77; O2SAT 100
[2020-02-07 03:10] VITALS: TEMP 98.2
== END 2020-02-07 02:57 | disposition home or self-care (01) ==
LOC: ER 01:53
DX: R33.9 Retention of urine, unspecified (principal)
CPT/HCPCS: 51702; 99284

== ENCOUNTER 2020-02-17 06:14 | Emergency (ER) | payer OTHER ==
--- OUTSIDE RECORDS SUMMARY | 2020-02-17 06:17 | XMS REPORT | Continuity of Care Document ---
:1945 Author Organization [facility] t Address [address] [place] [address] Care Team Providers Name Role Phone Perry [...] Department ID 2020-02-02 2020-02-02 Emergency SAMIA Perry [id number] 06:41:00 08:15:00 Chun Dinh [id number] [place] [id number] [place] [id number] 2020-02-02 2020-02-02 Orders Doctor RIVAS [id number] 00:00:00 00:00:00 Only UnassSANDRINE ortega [id number] [place] [facility] [id number] 2019-08-11 2019-08-11 Emergency Singer [facility] [id number] 11:46:26 12:23:00 Chun Dinh [id number] [place] [id number] [place] [id number] 2019-08-11 2019-08-11 Orders Doctor RIVAS [id number] 00:00:00 00:00:00 Only UnassignedKRISTINAY [id number] [place] [facility] [id number] 2019-01-09 2019-01-09 Emergency Singer [facility] [id number] 06:54:45 09:43:00 Chun [place]enton [id number] [place] [id number] [place] [id number] 2019-01-09 2019-01-09 Orders Doctor EVELYN [id number] 00:00:00 00:00:00 Only Unassigned SANDRINE [id number] [place] [id number] Results This patient has no known results.
--- OUTSIDE RECORDS SUMMARY | 2020-02-17 06:17 | XMS REPORT | Summary of Care ---
:1945 Author Organization [facility] - [facility] Address [address] [place] [address] Care Team Providers Name Role Phone [place], [facility] + Reason for Visit Reason Comments Constipation URINARY RETENTION Auth/Cert Status Reason Specialty Diagnoses / Referred By Referred To Procedures Contact Contact Emergency Medicine Diagnoses CONSTIPATION [facility] Emergency Dept [address] [place] [address] Fax: Encounter Details Date Type Department Care Team Description 02/02/2020 Emergency ADC-Emergency Chun Perry DO Urinary retention Department [address] [place] [address]. (Primary Dx) [address] [facility] [address] [place] [address] [place] [address] [phone] Allergies No Known Allergiesdocumented as of this [...] YOUR CHOICE 2. [facility], . LOCATIONS IN [facility] 3. [facility], [address] [place] [address]; [phone] OR, IF YOU WISH TO FOLLOW-UP WITHIN THE [facility], MAY TRY THESE OPTIONS (CLINIC APPOINTMENTS AVAILABLE ON KIRA-OL-LYRC BASIS): 1. SCHEDULE AN APPOINTMENT ONLINE AT WWW[facility] 2. OR CALL THE [facility] ACCESS CENTER AT OR 3. OR CALL YOUR [facility] PHYSICIAN'S OFFICE DIRECTLY IF YOU ARE ALREADY AN ESTABLISHED [facility] PATIENT. RETURN TO ER FOR WORSENING OF SYMPTOMS. AttachmentsThe following attachments cannot be sent through Care Everywhere. Catheter Care, Reece (Estonian)Urinary Retention, Male (Estonian)documented in this encounter ED Notes Chris Rousseau RN - 02/02/2020 6:42 AM CDTPatient complaining of constipation and urinary incontinence. Also reports this happened about 1 year ago. History of enlarged prostate and has had to have a reece catheter placed. 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 [facility] [id number] Instructions: For follow up of the presenting symptoms. ADC-Emergency Department Specialty: Emergency Medicine [address] [facility] [address] Instructions: If symptoms worsen as documented in [...] CDT) Pathologist Sig nature APPEARANCE Clear Clear [facility] COLOR Yellow Yellow [facility] PH 6.0 4.8 - 8.0 [facility] SP GRAVITY 1.008 1.003 - 1.030 [facility] GLU U QUAL Normal Normal [facility] BLOOD 1+ (A) Negative [facility] KETONES Negative Negative [facility] PROTEIN Negative Negative [facility] UROBILIN Normal Normal [facility] BILIRUBIN Negative Negative [facility] NITRITE Negative Negative [facility] LEUK GIULIANA Negative Negative [facility] RBC/HPF 1 0 - 3 HPF [facility] WBC/HPF 6 (H) 0 - 5 HPF [facility] BACTERIA Few (A) Negative [facility] MUCOUS Slight (A) Negative LPF [facility] SQ EPITH <1 HPF [facility] Specimen Urine - URINE, CATHETERIZED Performing Organization Address City/State/Zipcode Phone Number [facility] CLIA: [id number] [place] [address] documented in this encounter Visit Diagnoses Diagnosis Urinary retention - Primary Retention of urine, unspecified documented in this encounter Insurance Payer Benefit Plan / Subscriber ID Effective Phone Address T ype Group Dates MEDICARE MEDICARE PART A [id number] 2008-Pre [phone] Medicare dgpl [id number] [place] [phone] [employer] [id number] 2005-Pr HMO/PPO /PO ADMINISTRATION ADMINISTRATION curtis Us documented as of this encounter"
--- OUTSIDE RECORDS SUMMARY | 2020-02-17 06:17 | XMS REPORT | Summary of Care ---
:1945 Author Organization [facility] - Health Address [address] [place] [address] Care Team Providers Name Role Phone [place], [facility] Quoc Christensen [facility] Primary Care Provider + Encounter Details Date Type Department Care Team Description 02/02/2020 Orders Only [facility] Doctor Unassigned, No [address] [facility] [place] [address] [address] [place] [address] Allergies No Known Allergiesdocumented as of this [...] ype Group Dates MEDICARE MEDICARE PART A [id number] 2008-Pre [phone] Medicare sent [id number] [place] [phone] [employer] [id number] 2005-Pr HMO/PPO /PO ADMINISTRATION ADMINISTRATION esent S [employer] [facility] [id number] 2005-Pr HMO/PPO /PO ADMINISTRATION esent S documented as of this encounter
[2020-02-17] MEDS ORDERED: LIDOCAINE VISCOUS 2% SOLN 15 ML UDC ONE (07:19)
[2020-02-17 07:35] LABS: Urine Blood 2+ (NEG); Urine Glucose NEGATIVE (NEG); Urine Protein 2+ (NEG); Urine Specific Gravity 1.015 (1.005-1.030); Urine pH 5.5 (5.0-7.0)
--- NOTE | 2020-02-17 07:39 | EDPHYS ---
Physician Documentation [facility] Name: Ric Rivas Age: 74 yrs Sex: Male : 1945 Arrival Date: 02/17/2020 Time: 06:17 Bed 7 Private MD: ED Physician Bladimir Green HPI: 02/16 06:38 This 74 yrs old Male presents to ER via Ambulatory with complaints of Urinary rn Problem. 06:38 The patient presents with urinary symptoms, retention, unable to void. Onset: The rn symptoms/episode began/occurred this morning. Modifying factors: The symptoms are alleviated by nothing, the symptoms are aggravated by nothing. Severity of symptoms: At their worst the symptoms were mild, in the emergency department the symptoms are unchanged. The patient has experienced similar episodes in the past. Reports just had reece catheter removed yesterday, passed voiding trial, went home, reports this AM not able to urinate, is small dribble. Taking prostate medication. Has happened several times before. Doesn't feel as uncomfortable as he has before. . Historical: - Allergies: 06:31 No Known Allergies; bb - Home Meds: 06:31 Bupropion Oral [Active]; Flomax Oral [Active]; bb - PMHx: 06:31 enlarged prostate; PTSD; urinary retention; bb - PSHx: 06:31 Carpal Tunnel Repair; bb - Immunization history:: Adult Immunizations up to date. - Social history:: Smoking status: Patient denies any tobacco usage or history of. Patient/guardian denies using alcohol. - Family history:: not pertinent. - Hospitalizations: : No recent hospitalization is reported. ROS: 06:38 Constitutional: Negative for fever, chills, and weight loss, Abdomen/GI: Negative for rn abdominal pain, nausea, vomiting, diarrhea, and constipation, : Negative for injury, bleeding, discharge, and swelling. Exam: 06:38 Constitutional: This is a well developed, well nourished patient who is awake, alert, rn and in no acute distress. Ambulatory to room Abdomen/GI: soft, non-tender Skin: Warm, dry Neuro: Awake and alert, GCS 15, oriented to person, place, time, and situation. Motor strength 5/5 in all extremities. Sensory grossly intact. Cerebellar exam normal. Normal gait. Vital Signs: 06:26 BP 127 / 77; Pulse 91; Resp 16 S; Temp 97.8(TE); Pulse Ox 97% on R/A; Weight 97.52 kg bb (R); Height 6 ft. 0 in. (182.88 cm) (R); Pain 2/10; 07:30 BP 141 / 93; Pulse 57; Resp 15; Pulse Ox 96% ; Pain 0/10; jl7 06:26 Body Mass Index 29.16 (97.52 kg, 182.88 cm) bb MDM: 06:20 Patient medically screened. rn 06:45 Differential diagnosis: UTI, urinary retention, prostatitis, urethritis. Data reviewed: rn vital signs, nurses notes. ED course: Pt went to bathroom, states able to urinate some, did not catch it, walked back to room, wants to hold off on reece catheter to see if he can urinate more and avoid another catheter. . 07:05 Transition of care: After a detail discussion of the patient's case, care is rn transferred to Bladimir Green MD. 07:36 Data interpreted: nurse monitoring: not applicable for this patient encounter. rate is michael 57 beats/min, rhythm is regular, Pulse oximetry: on room air is 96 %. Test interpretation: by ED physician or midlevel provider:. Counseling: I had a detailed discussion with the patient and/or guardian regarding: the historical points, exam findings, and any diagnostic results supporting the discharge/admit diagnosis, lab results, the need for outpatient follow up, for definitive care, a urologist. 02/16 06:38 Order name: Urine Culture rn 02/16 06:38 Order name: Urine Microscopic Only; Complete Time: 19:38 rn 02/16 06:38 Order name: Reece; Complete Time: 07:37 rn 02/16 06:38 Order name: Urine Dipstick-Ancillary (obtain specimen); Complete Time: 07:37 rn 02/16 07:10 Order name: Urine Dipstick--Ancillary (enter results); Complete Time: 07:36 bd 02/16 06:38 Order name: Bladder Scanner; Complete Time: 06:40 rn 02/16 07:35 Order name: Leg Bag; Complete Time: 08:04 michael Administered Medications: 07:40 Drug: Cipro 500 mg Route: PO; jl7 08:03 Follow up: Response: No adverse reaction jl7 Disposition: 02/17/20 07:38 Discharged to Home. Impression: Retention of urine - PVR 530 cc. - Condition is Stable. - Discharge Instructions: Reece Catheter Care, Adult, Acute Urinary Retention, Male, [id number]-uo-Wrao. - Prescriptions for Flomax 0.4 mg Oral Capsule, Sust. Release 24 hr - take 1 capsule by ORAL route once daily 1/2 hour following the same meal each day; 30 capsule. Cipro 500 mg Oral Tablet - take 1 tablet by ORAL route every 12 hours for 7 days; 14 tablet. - Medication Reconciliation Form, Thank You Letter, Antibiotic Education, Prescription Opioid Use form. - Follow up: Private Physician; When: 2 - 3 days; Reason: Recheck today's complaints, Continuance of care, Re-evaluation by your physician. Follow up: Deo Reeves MD; When: 2 - 3 days; Reason: Recheck today's complaints, Continuance of care, Re-evaluation by your physician. - Problem is new. - Symptoms have improved. Signatures: Dispatcher [employer] EDMO Bladimir Green MD MD cha Ballard, Brenda RN RN Luis Antonio Malhotra MD MD rn Leal, Jahala, RN RN jl7 Corrections: (The following items were deleted from the chart) 08:04 07:38 02/17/2020 07:38 Discharged to Home. Impression: Retention of urine - PVR 530 cc. jl7 Condition is Stable. Forms are Medication Reconciliation Form, Thank You Letter, Antibiotic Education, Prescription Opioid Use. Follow up: Private Physician; When: 2 - 3 days; Reason: Recheck today's complaints, Continuance of care, Re-evaluation by your physician. Follow up: Deo Reeves; When: 2 - 3 days; Reason: Recheck today's complaints, Continuance of care, Re-evaluation by your physician. Problem is new. Symptoms have improved. michael
--- NOTE | 2020-02-17 07:39 | ER ---
Nurse's Notes [facility] Name: Ric Rivas Age: 74 yrs Sex: Male : 1945 Arrival Date: 02/17/2020 Time: 06:17 Bed 7 Private MD: Diagnosis: Retention of urine-PVR 530 cc Presentation: 02/16 06:26 Chief complaint: Patient states: he has urinary retention and had a catheter in until bb yesterday when it was removed at his doctor's office he was urinating okay until about 0200 last night and now he can't go. He was constipated and took castor oil which helped his constipation but thinks it may have caused burning when he urinates. Coronavirus screen: At this time, the client does not indicate any symptoms associated with coronavirus-19. Ebola Screen: No symptoms or risks identified at this time. Initial Sepsis Screen: Does the patient meet any 2 criteria? No. Patient's initial sepsis screen is negative. Does the patient have a suspected source of infection? No. Patient's initial sepsis screen is negative. Risk Assessment: Do you want to hurt yourself or someone else? Patient reports no desire to harm self or others. Onset of symptoms was February 16, 2020. 06:26 Method Of Arrival: Ambulatory 06:26 Acuity: BOBBY 3 bb 06:30 Initial Sepsis Screen: Does the patient meet any 2 criteria? No. Patient's initial ea sepsis screen is negative. Does the patient have a suspected source of infection? No. Patient's initial sepsis screen is negative. 06:30 Ebola Screen: No symptoms or risks identified at this time. ea Historical: - Allergies: 06:31 No Known Allergies; bb - Home Meds: 06:31 Bupropion Oral [Active]; Flomax Oral [Active]; bb - PMHx: 06:31 enlarged prostate; PTSD; urinary retention; bb - PSHx: 06:31 Carpal Tunnel Repair; bb - Immunization history:: Adult Immunizations up to date. - Social history:: Smoking status: Patient denies any tobacco usage or history of. Patient/guardian denies using alcohol. - Family history:: not pertinent. - Hospitalizations: : No recent hospitalization is reported. Screenin:30 Abuse screen: Denies threats or abuse. Nutritional screening: No deficits noted. ea Tuberculosis screening: No symptoms or risk factors identified. Fall Risk None identified. Assessment: 06:32 General: Appears uncomfortable, Behavior is appropriate for age. Pain: Complains of ea pain in suprapubic area Quality of pain is described as pressure. Neuro: Level of Consciousness is awake, alert, obeys commands, Oriented to person, place, time, situation. 06:32 Respiratory: Airway is patent Respiratory effort is even, unlabored, Respiratory ea pattern is regular, symmetrical. : Reports inability to void. Derm: Skin is pink, warm \\T\\ dry. 07:15 Reassessment: Pt reports he was able to void more than 100 ml's for urine sample. jl7 Bladder scanner post void showed 529 mL's. Pt states "I'm getting really uncomfortable now." Umanzor placed and pt reports immediate relief. About 500 Ml's measured. Repeat bladder scan shows 0 mls at this time. 07:30 Reassessment: Dr. Green at bedside. jl7 08:02 Reassessment: Umanzor bag replaced with leg bag. jl7 Vital Signs: 06:26 BP 127 / 77; Pulse 91; Resp 16 S; Temp 97.8(TE); Pulse Ox 97% on R/A; Weight 97.52 kg bb (R); Height 6 ft. 0 in. (182.88 cm) (R); Pain 2/10; 07:30 BP 141 / 93; Pulse 57; Resp 15; Pulse Ox 96% ; Pain 0/10; jl7 06:26 Body Mass Index 29.16 (97.52 kg, 182.88 cm) ED Course: 06:17 Patient arrived in ED. cl3 06:20 Luis Antonio Agarwal MD is Attending Physician. rn 06:29 Sheela Ortiz, STACY is Primary Nurse. ea 06:30 Triage completed. bb 06:30 Bladder scan completed. 344 mls. ea 06:30 Patient has correct armband on for positive identification. Bed in low position. Call ea light in reach. Side rails up X2. 06:31 Patient placed in an exam room, on a stretcher, on pulse oximetry. ea 06:31 Arm band placed on Patient placed in an exam room, on a stretcher, on pulse oximetry. bb Family accompanied patient. 07:15 Umanzor cath inserted, using sterile technique, 16 Fr., by nc, balloon inflated, to jl7 gravity drainage, returned clear yellow urine. Patient tolerated well. 07:24 Attending Physician role handed off by Luis Antonio Agarwal MD [facility] 07:24 Bladimir Green MD is Attending Physician. [facility] 07:36 No provider procedures requiring assistance completed. Patient did not have IV access jl7 during this emergency room visit. 07:37 Deo Reeves MD is Referral Physician. [facility] Administered Medications: 07:40 Drug: Cipro 500 mg Route: PO; jl7 08:03 Follow up: Response: No adverse reaction jl7 Outcome: 07:38 Discharge ordered by MD. [facility] 08:02 Discharged to home ambulatory. jl7 08:02 Condition: stable 08:02 Discharge instructions given to patient, Instructed on discharge instructions, follow up and referral plans. medication usage, Demonstrated understanding of instructions, follow-up care, medications, Prescriptions given X 1. 08:04 Patient left the ED. jl7 Signatures: Bladimir Green MD MD cha Ballard, Brenda, RN RN Luis Antonio Agarwal MD MD rn Leal, Jahala, RN RN jl7 Sheela Ortiz, RN Georgia Henley ea cl3
[2020-02-17 07:47] LABS: Urine Bacteria <20 /HPF (NONE SEEN)
[2020-02-17 07:48] LABS: Urine Culture Reflex Order NOT NEEDED; Urine Mucus 1+ /HPF (NONE SEEN); Urine Urothelial Cells <5 /HPF (NONE SEEN)
[2020-02-17] MEDS ORDERED: CIPROFLOXACIN HCL 500 MG TAB ONE (07:52)
[2020-02-17 08:17] VITALS: TEMP 97.8
[2020-02-17 08:19] VITALS: BP 141/93; O2SAT 96
== END 2020-02-17 08:04 | disposition home or self-care (01) ==
LOC: ER 06:14
DX: R33.9 Retention of urine, unspecified (principal); N40.0 Benign prostatic hyperplasia without lower urinary tract symptoms; F43.10 Post-traumatic stress disorder, unspecified
CPT/HCPCS: 51702; 81003; 81015; 87086; 87088; 99284